=== PATIENT | female | born 1940 | race Caucasian/White ===

== ENCOUNTER 2024-02-26 06:37 | Inpatient (IN) ==
[2024-02-26] MEDS: NITROGLYCERIN SL 0.4 MG/TAB TAB SL PRN (07:14)
[2024-02-26] MEDS: ASPIRIN CHEW 324 MG PO STA (07:14)
[2024-02-26 07:28] LABS: Basophils # (auto) 0.06 K/uL (0.00-0.20); Basophils % (auto) 0.5 %; Eosinophils # (auto) 0.22 K/uL (0.00-0.50); Hematocrit (blood only) 37.3 % (37.0-47.0); Hemoglobin 12.4 g/dl (12.0-16.0); Immature Granulocytes # (auto) 0.04 K/uL (0.01-0.20); Immature Granulocytes % (auto) 0.4 %; Lymphocytes # (auto) 3.53 K/uL (1.20-3.40); Lymphocytes % (auto) 32.1 %; Mean Corpuscular Hemoglobin 27.8 pg (25.0-34.0); Mean Corpuscular Hgb Conc 33.2 g/dL (32.0-36.0); Mean Corpuscular Volume 83.6 fL (80.0-100.0); Mean Platelet Volume 11.4 fL (9.4-12.4); Monocytes # (auto) 0.94 K/uL (0.11-0.59); Monocytes % (auto) 8.6 %; Neutrophils % (auto) 56.4 %; Platelet Count 293 K/uL (130-400); RDW Coefficient of Variation 14.2 % (11.5-14.5); RDW Standard Deviation 43.2 fL (36.4-46.3); Red Blood Count 4.46 M/uL (4.20-5.40); White Blood Count 10.99 K/ul (4.8-10.8)
[2024-02-26 07:35] LABS: Albumin Globulin Ratio 1.2 (0.9-2); Albumin Level 4.1 gm/dl (3.4-5.0); BUN Creatinine Ratio 15.8 (10-20); Bilirubin,Total 0.4 mg/dl (0.2-1.0); Creatinine Clr Calc Pharmacy 43.7 ml/min; Est GFR (African American) 84.1 ml/min; Est GFR (Non-African American) 72.5 ml/min; Globulin 3.5 gm/dl (2.5-4.0); Potassium 3.9 mmol/L (3.5-5.1); Total Protein 7.6 gm/dl (6.0-8.3)
--- NOTE | 2024-02-26 07:39 | XRay Report ---
XR chest 1V portable CLINICAL HISTORY: Chest pain, nonspecific TECHNIQUE: Single frontal radiograph of the chest was obtained. Comparison: None available at the time of this dictation. FINDINGS: No lines and tubes are seen. Calcified aortic knob is seen. The lungs are clear. No evidence of pleur al effusion or pneumothorax. IMPRESSION: No acute chest disease. ACT 112: Negative or not required by law. Electronically signed by: Suraj Schmitz M.D. 02/26/2024 7:38 AM
--- NOTE | 2024-02-26 07:46 | Emergency Department Note ---
Impression & Plan Retrosternal chest pain ED Provider Note NAME: ARIELLE MCCULLOUGH AGE: 83 SEX: Female INFORMANT: Patient ED PROVIDER(S): Antonio Pollock MD CHIEF COMPLAINT: Chest pain PLAN: Disposition: Admitted Outpatient prescription management: none Referral: None MEDICAL DECISION MAKING: Patient presented because of substernal chest pain. She was uncomfortable. ECG was performed and did not show any acute ischemic change. Pre-existing left bundle branch morphology. I did obtain an ECG from the [facility] system from 2019. Our last ECG here was in 2010. Comparing the 3 ECGs did not reveal any significant changes. Patient was given aspirin and 1 nitroglycerin. She did note some relief with the nitroglycerin and a second dose was given. Blood pressure did improve with this. Pain resolved. On reassessment patient was doing well. Further management the hospital was deemed appropriate. Consultation was made with the [facility] service. Patient was evaluated in the ER and admitted for further management. Care/management discussed with: manager report Level of care consideration(s): After review of the information above and other included data, I feel the patient requires escalation of care to admission Triage Nursing notes: reviewed and agree them. Vital Signs: reviewed and remarkable for hypertension Additional History obtained from: none Chronic Medical/Social Conditions affecting care: Hypertension, high cholesterol Prior/ Outside/ External records reviewed: ECG from [facility] was reviewed from December 2019. <Noted. Also echo cardiogram from 2022 reviewed. Mild LV wall thickness increase noted. EF of 65to 69%. No aortic stenosis. No pulmonary hypertension. Differential Diagnosis: Cardiac ischemia, aortic dissection, pulmonary embolism, pneumothorax, pneumonia, pericarditis, myocarditis, esophageal rupture, GERD, cholecystitis, pancreatitis, musculoskeletal, as well as other pathologies. Diagnostics, independently interpreted by me: ECG: Twelve-lead ECG reveals normal sinus rhythm at 92 bpm. Left bundle branch block. ST and T wave abnormality laterally. Prolonged QT. When compared to 23 January 2011 and 09 December 2019 there is no significant change. Cardiac Monitoring: Cardiac monitoring ordered by me: The patient was placed on continuous cardiac monitoring and observed. It revealed a normal sinus rhythm at 90 beats per minute without ectopy or evidence of dysrhythmia. Medical decision rules: Patient is moderate risk by HEART SCORE:. Imaging studies: Chest x-ray. Findings: A chest x-ray was performed and revealed no pneumothorax, effusion, infiltrate, pulmonary edema, free air under the diaphragm, or wide mediastinum. HPI: 83 year old Female arrives for evaluation of chest pain. This started this morning and is retrosternal. The patient also notes the following associated symptoms, 2 episodes of diarrhea. The patient has taken no medication for relieving factors. Current pain is rated as 7/10. No prior history of the same. Pt denies LOC, headache, fevers, chills, diaphoresis, visual changes, neck pain, breathing difficulties, nausea, vomiting, abdominal pain, back pain, melena, hematochezia, urinary symptoms, numbness, weakness, lymphadenopathy, rash, or other complaints. PAST MEDICAL HISTORY: See Below, hypertension PAST SURGICAL HISTORY: See Below, SOCIAL HISTORY: See Below, HOME MEDICATIONS: See Below ALLERGIES: See Below VITALS: See Below PHYSICAL EXAMINATION: GENERAL: Awake, alert, uncomfortable-appearing, in no distress HENT: Normocephalic, atraumatic. Oropharynx unremarkable. EYES: Normal conjunctiva. Sclera non-icteric. NECK: Inspection normal. Non-tender. Supple. No nuchal rigidity. FROM. No masses. RESPIRATORY: Clear to auscultation. No wheezes. No rales. Normal respiratory effort. CARDIAC: Normal rate. Normal rhythm. Systolic ejection murmur noted. No rubs. Extremities warm and well perfused. Pulses equal. No JVD. GI: Soft, non-distended. No tenderness to palpation. No rebound or guarding. No masses. RECTAL: Deferred. MUSCULOSKELETAL: Atraumatic. Chest examination reveals no tenderness. The back is symmetrical on inspection without obvious abnormality. There is no CVA tenderness to palpation. No joint edema. LOWER EXTREMITIES: Calves are equal size bilaterally and non-tender. No edema. No discoloration. NEURO: Normal sensorium. No sensory or motor deficits noted. SKIN: No rash or jaundice noted. PROCEDURES: none CRITICAL CARE: none OBSERVATION NOTE: none Past Med/Surg History Problem List (Updated 02/26/24 @ 11:13 by CRISTOFER Mills) Suspected UTI Diarrhea Hypertension Dyslipidemia Retrosternal chest pain (Acute) Surgical History No pertinent past surgical history Family History Other Dyslipidemia Social History Smoking Status: Never smoker Preferred Language: Welsh Feels Safe at Home: Yes Allergies Allergies Allergy/AdvReac Type Severity Reaction Status Date / Time atorvastatin AdvReac Intermediate Cramping Unverified 02/26/24 09:35 of the Muscles prednisone AdvReac Intermediate "loss of Unverified 02/26/24 09:35 balance. didnt work" Home Meds Home Medications Medication Instructions Recorded Confirmed lisinopril 20 0.5 tab PO DAILY 02/26/24 02/26/24 mg-hydrochlorothiazide 12.5 mg tablet omeprazole 20 mg capsule,delayed 20 mg PO DAILY 02/26/24 02/26/24 release Results & Data (ED) Vital Signs Vital Signs - 24 hr 02/26/24 06:38 02/26/24 06:42 02/26/24 07:28 Temperature 36.8 C Temperature Source Temporal Artery Scan Pulse Rate 98 H 88 Pulse Rate from SpO2 Sensor 83 Respiratory Rate 18 21 Blood Pressure 190/83 H Blood Pressure Mean 118 Blood Pressure Position Sitting Pulse Oximetry 94 92 Oxygen Delivery Method Room Air Room Air Sepsis Recent Fever Within 48 Hours No Sepsis New/Unexplained Change in Mental Status N/A Sepsis Action Taken by Nursing No Action Required 02/26/24 07:29 02/26/24 07:30 02/26/24 07:45 Temperature Temperature Source Pulse Rate 88 90 88 Pulse Rate from SpO2 Sensor 84 88 85 Respiratory Rate 20 22 19 Blood Pressure 151/83 H 153/81 H 136/84 Blood Pressure Mean 105 105 101 Blood Pressure Position Pulse Oximetry 94 93 94 Oxygen Delivery Method Sepsis Recent Fever Within 48 Hours Sepsis New/Unexplained Change in Mental Status Sepsis Action Taken by Nursing 02/26/24 08:00 02/26/24 08:14 02/26/24 08:15 Temperature Temperature Source Pulse Rate 77 78 Pulse Rate from SpO2 Sensor 76 77 Respiratory Rate 17 Blood Pressure 137/75 Blood Pressure Mean 95 Blood Pressure Position Pulse Oximetry 92 93 Oxygen Delivery Method Sepsis Recent Fever Within 48 Hours Sepsis New/Unexplained Change in Mental Status Sepsis Action Taken by Nursing 02/26/24 08:30 02/26/24 08:44 02/26/24 09:00 Temperature Temperature Source Pulse Rate 78 75 77 Pulse Rate from SpO2 Sensor 78 75 76 Respiratory Rate 22 18 20 Blood Pressure 139/71 146/66 H 147/77 H Blood Pressure Mean 93 92 100 Blood Pressure Position Pulse Oximetry 93 93 93 Oxygen Delivery Method Sepsis Recent Fever Within 48 Hours Sepsis New/Unexplained Change in Mental Status Sepsis Action Taken by Nursing 02/26/24 09:14 02/26/24 09:30 02/26/24 09:45 Temperature Temperature Source Pulse Rate 76 81 80 Pulse Rate from SpO2 Sensor 76 81 78 Respiratory Rate 19 24 22 Blood Pressure 150/78 H 158/88 H 177/89 H Blood Pressure Mean 102 111 118 Blood Pressure Position Pulse Oximetry 92 95 95 Oxygen Delivery Method Sepsis Recent Fever Within 48 Hours Sepsis New/Unexplained Change in Mental Status Sepsis Action Taken by Nursing Laboratory Data 02/26/24 06:55 02/26/24 06:55 Lab Results 02/26/24 02/26/24 Range/Units 06:55 08:21 WBC 10.99 H (4.8-10.8) K/ul RBC 4.46 (4.20-5.40) M/uL Hgb 12.4 (12.0-16.0) g/dl Hct 37.3 (37.0-47.0) % MCV 83.6 (80.0-100.0) fL MCH 27.8 (25.0-34.0) pg MCHC 33.2 (32.0-36.0) g/dL RDW Std Deviation 43.2 (36.4-46.3) fL RDW Coeff of James 14.2 (11.5-14.5) % Plt Count 293 (130-400) K/uL MPV 11.4 (9.4-12.4) fL Immature Gran % (Auto) 0.4 % Neut % (Auto) 56.4 % Lymph % (Auto) 32.1 % Ashe % (Auto) 8.6 % Eos % (Auto) 2.0 % Baso % (Auto) 0.5 % Neut # (Auto) 6.20 (1.40-6.50) K/uL Lymph # (Auto) 3.53 H (1.20-3.40) K/uL Ashe # (Auto) 0.94 H (0.11-0.59) K/uL Eos # (Auto) 0.22 (0.00-0.50) K/uL Baso # (Auto) 0.06 (0.00-0.20) K/uL Immature Gran # (Auto) 0.04 (0.01-0.20) K/uL Sodium 142 (136-145) mmol/L Potassium 3.9 (3.5-5.1) mmol/L Chloride 101 (98-107) mmol/L Carbon Dioxide 34 H (21-32) mmol/L Anion Gap 7 (3-11) BUN 12 (6-23) mg/dl Creatinine 0.76 (0.6-1.2) mg/dl Est Cr Clr Drug Dosing 43.7 ml/min Est GFR ( Amer) 84.1 ml/min Est GFR (Non-Af Amer) 72.5 ml/min BUN/Creatinine Ratio 15.8 (10-20) Glucose 104 H (70-99(Fasting)) mg/dl Calcium 10.0 (8.6-10.3) mg/dl Total Bilirubin 0.4 (0.2-1.0) mg/dl AST 16 (13-39) U/L ALT 18 (7-52) U/L Alkaline Phosphatase 92 (34-104) U/L Troponin I High Sens 7.0 (0-14) pg/ml Total Protein 7.6 (6.0-8.3) gm/dl Albumin 4.1 (3.4-5.0) gm/dl Globulin 3.5 (2.5-4.0) gm/dl Albumin/Globulin Ratio 1.2 (0.9-2) Lipase 33 (11-82) U/L TSH 4.673 H (0.300-4.500) uIu/ml Urine Color Yellow Urine Appearance Turbid A (Clear) Urine pH >= 9.0 H (4.5-7.5) Ur Specific [place] 1.014 (1.000-1.030) Urine Protein Trace H (Negative) Urine Glucose (UA) Negative (Negative) Urine Ketones Negative (Negative) Urine Blood Negative (Negative) Urine Nitrite Negative (Negative) Urine Bilirubin Negative (Negative) Urine Urobilinogen Negative (Negative) Ur Leukocyte Esterase Negative (Negative) Urine WBC (Auto) 0-5 (0-5) /hpf Urine RBC (Auto) 0-2 (0-2) /hpf U Hyaline Cast (Auto) 0-2 (0-2) /lpf U Epithel Cells (Auto) 0-2 (0-2) /hpf Urine Bacteria (Auto) 4+ H (None Seen) Administered Medications Ceftriaxone Sodium (Rocephin) 2,000 mg in 50 mls @ 100 mls/hr IV Q24H [facility] Stop: 02/28/24 10:44 Last Infusion: 02/26/24 11:47 Dose: Infused Documented By: Admin: 02/26/24 11:15 Dose: 100 mls/hr Documented By: JIMI Lisinopril (Lisinopril 20 Mg Tab) 20 mg PO QAM OSITO Stop: 03/27/24 10:29 Last Admin: 02/26/24 11:14 Dose: 20 mg Documented By: JIMI Nitroglycerin (Nitroglycerin Sl 0.4 Mg/Tab Tab) 0.4 mg SL Q5M PRN PRN Reason: Chest Pain Stop: 03/27/24 07:02 Last Admin: 02/26/24 07:14 Dose: 0.4 mg Documented By: LINDA Nitroglycerin (Nitroglycerin 2% Ointment 30gm Tube) 0.5 inch EXT Q6 OSITO Stop: 03/27/24 11:59 Last Admin: 02/26/24 12:16 Dose: Not Given Documented By: JIMI Discontinued Medications Aspirin (Aspirin Chew 324 Mg) 324 mg PO NOW STA Stop: 02/26/24 07:04 Last Admin: 02/26/24 07:14 Dose: 324 mg Documented By: LINDA Nitroglycerin (Nitroglycerin 2% Ointment 30gm Tube) 0.5 inch EXT NOW STA Stop: 02/26/24 09:30 Last Admin: 02/26/24 09:48 Dose: 0.5 inch Documented By: ARS Imaging Data Radiologist's Impression: Chest X-Ray 02/26/24 06:59 XR chest 1V portable CLINICAL HISTORY: Chest pain, nonspecific TECHNIQUE: Single frontal radiograph of the chest was obtained. Comparison: None available at the time of this dictation. FINDINGS: No lines and tubes are seen. Calcified aortic knob is seen. The lungs are clear. No evidence of pleural effusion or pneumothorax. IMPRESSION: No acute chest disease. ACT 112: Negative or not required by law. Electronically signed by: Suraj Schmitz M.D. 02/26/2024 7:38 AM Discharge Plan Visit Data Chief Complaint: Chest Pain Stated Complaint: CHEST PAIN ED Provider: Antonio Pollock Discharge Problem: Retrosternal chest pain Patient Disposition: Admitted As Inpatient Discharge Instructions Interventions: ED Discharge Assessment Last Done: 02/26/24 11:51
[2024-02-26 08:53] LABS: Appearance Urine Turbid (Clear); Bacteria Urine Automated 4+ (None Seen); Bilirubin Urine Negative (Negative); Blood Urine Negative (Negative); Cast Urine Automated 0-2 /lpf (0-2); Color Urine Yellow; Epithelial Cell Urine Auto 0-2 /hpf (0-2); Glucose Urine UA Negative (Negative); Ketones Urine Negative (Negative); Leukocyte Esterase Urine Negative (Negative); Nitrite Urine Negative (Negative); Protein Urine Trace (Negative); RBC Urine Automated 0-2 /hpf (0-2); Specific Gravity Urine 1.014 (1.000-1.030); Urobilinogen Urine Negative (Negative); WBC Urine Automated 0-5 /hpf (0-5); pH Urine >= 9.0 (4.5-7.5)
[2024-02-26] MEDS: NITROGLYCERIN 2% OINTMENT 30GM TUBE EXT STA (09:48)
[2024-02-26] MEDS ORDERED: ONDANSETRON INJ 2 MG/ML 2 ML VIAL IV PRN (09:54)
[2024-02-26] MEDS ORDERED: ACETAMINOPHEN 325 MG TAB PO PRN (09:54)
[2024-02-26] MEDS ORDERED: ALUMINUM/MAGNESIUM SUSP 30 ML UDC PO PRN (09:54)
[2024-02-26] MEDS ORDERED: MAGNESIUM HYDROXIDE SUSP 30 ML UDC PO PRN (09:54)
--- NOTE | 2024-02-26 10:03 | History & Physical Report ---
Date of Service February 26, 2024 Assessment & Plan (1) Retrosternal chest pain: (2) Hypertension: (3) Dyslipidemia: (4) GERD (gastroesophageal reflux disease): (5) Diarrhea: (6) Suspected UTI: Plan Ms. Yanes is an 83 year old that presents to the ED with complaints of mid sterna l chest pain that started overnight at 0200 with no SOB or radiation. She denies SOB with this. ECG 2019 with LBBB which remains today with some lateral ischemic Patient did not take her antihypertensives this morning. Denies CAD history. She did have three episodes of diarrhea today. She did not take her BP medication today and admits to missing some days. Most recent 05/06/2023; EF 60 to 69%, mild aortic valve sclerosis, increased LV wall thickness borderline concentric, G1DDx. Slight leukocytosis 10.99, LFTs and troponin negative. Otherwise drawn labs unremarkable. Most recent lipid panel 10/30 TG 2050, HDL 39, LDL 150. TSH October 2023 2.35.On exam, patient does not appear toxic. Reportedly with an auscultated murmur, euvolemic. Patient will be admitted for further evaluation and management of her chest pain; will repeat ECHO, check fasting lipid panel, obtain TSH, daily ECG x2, continue Nitro paste, Labetalol IV PRN, will hold HCTZ given diarrhea, ordered stool studies, Rocephin IV for empiric treatment and Cardiology consultation. Retrosternal chest pain: HTN urgency: Acute Started overnight at 0200 without radiation BP on arrival to ED 190/83 ECG without ischemia; LBBB Troponin negative (7.0) ASA 324 mg given in ED; continue baby ASA tomorrow CXR negative for acute cardiopulmonary disease Most recent 05/06/2023; EF 60 to 69%, mild aortic valve sclerosis, increased LV wall thickness borderline concentric, G1DDx. Repeat ECHO today Nitro SL x2; Nitro paste applied; continue for now takes Lisinopril/HCTZ; Hold for now and continue Lisinopril 20 mg daily Labetalol 10 mg IV Q6 PRN SBP > 180 DBP > 100 Continue Nitro paste for now Cardiology consult placed Diarrhea: Abnormal UA: Suspected UTI Acute 3 episodes today Stool culture ordered Rocephin one dose IV today for empiric treatment HLD: Chronic Last lipid panel 10/2023: TG 250, HDL 39, LDL 152; repeat fasting lipid panel in AM no longer takes low dose atorvastatin; has muscle cramping GERD: Chronic Takes Omeprazole;continue Disposition: PCP: Dr. Suarez Code Status: Conditional code VTE Prophylaxis: Lovenox SQ I spent a total of 85 minutes coordinating, documenting, and providing care for this patient excluding time spent in the performance of separately billed services. All of the aforementioned completed while collaborating with the assigned attending physician for a full treatment plan. Please see their addendum for further details. History of Present Illness Chief Complaint: chest pain Primary Care Provider: Leah Suarez DO Ms. Yanes is an 83 year old that presents to the ED with complaints of mid sternal chest pain that started overnight at 0200 with no SOB or radiation. She denies SOB with this. ECG 2020 with LBBB which remains today with some lateral ischemia. Patient did not take her antihypertensives this morning. She did have three episodes of diarrhea today. She did not take her BP medication today and admits to missing some days. PMH includes: HTN, HLD, and GERD. She does not take any statin due to muscle cramping. Denies tobacco, alcohol, and recreational drug use. Most recent 05/06/2023; EF 60 to 69%, mild aortic valve sclerosis, increased LV wall thickness borderline concentric, G1DDx. Slight leukocytosis 10.99, LFTs and troponin negative. Otherwise drawn labs unremarkable. Most recent lipid panel 10/30 TG 0, HDL 39, LDL 150. TSH October 2023 2.35. Pt denies ALMAZAN, dizziness, lightheadedness, abdominal pain or tenderness, dysuria, SOB, recent falls or trauma. On exam, patient does not appear toxic. Reportedly with an auscultated murmur, euvolemic. Patient will be admitted for further evaluation and management of her chest pain; will repeat ECHO, check fasting lipid panel, obtain TSH, daily ECG x2, continue Nitro paste, Labetalol IV PRN, will hold HCTZ given diarrhea, ordered stool studies, Rocephin IV for empiric treatment and Cardiology consultation. Allergies Allergy/AdvReac Type Severity Reaction Status Date / Time atorvastatin AdvReac Intermediate Cramping Unverified 02/26/24 09:35 of the Muscles prednisone AdvReac Intermediate "loss of Unverified 02/26/24 09:35 balance. didnt work" Home Medications Medication Instructions Recorded Confirmed Type lisinopril 20 0.5 tab PO DAILY 02/26/24 02/26/24 History mg-hydrochlorothiazide 12.5 mg tablet omeprazole 20 mg capsule,delayed 20 mg PO DAILY 02/26/24 02/26/24 History release Past Med/Surg History Problem List (Updated 02/26/24 @ 11:13 by CRISTOFER Mills) Suspected UTI Diarrhea Hypertension Dyslipidemia Retrosternal chest pain (Acute) Surgical History No pertinent past surgical history Family History Other Dyslipidemia Social History Smoking Status: Never smoker Preferred Language: Israeli Feels Safe at Home: Yes Review of Systems Review of Systems: Neuro: (-) Falls, trauma, slurred speech HEENT: (-) ALMAZAN, dizziness, dysphagia, visual or auditory changes CV: (+) CP, palpitations, (-) swelling Resp: (-) SOB GI: (-) appetite changes, N/V/D, bowel changes : (-) urinary changes Skin: (-) rashes Psych: (-) anxiety, depression Physical Exam Physical Exam: See Dr. Mccauley's addendum for physical examination findings Results & Data Results & Data Vital Signs (Past 12 Hours) Vital Signs Temp Pulse Resp BP Pulse Ox O2 Del Method 02/26/24 08:14 77 02/26/24 06:42 36.8 C 98 H 18 190/83 H 94 Room Air 02/26/24 06:38 Room Air Laboratory Results Short CBC 02/26/24 Range/Units 06:55 WBC 10.99 H (4.8-10.8) K/ul Hgb 12.4 (12.0-16.0) g/dl Hct 37.3 (37.0-47.0) % Plt Count 293 (130-400) K/uL BMP 02/26/24 06:55 Sodium 142 Potassium 3.9 Chloride 101 Carbon Dioxide 34 H BUN 12 Creatinine 0.76 Glucose 104 H Calcium 10.0 Liver Function 02/26/24 Range/Units 06:55 Total Bilirubin 0.4 (0.2-1.0) mg/dl AST 16 (13-39) U/L ALT 18 (7-52) U/L Alkaline Phosphatase 92 (34-104) U/L Albumin 4.1 (3.4-5.0) gm/dl Urine 02/26/24 Range/Units 08:21 Urine Color Yellow Urine Appearance Turbid A (Clear) Urine pH >= 9.0 H (4.5-7.5) Ur Specific Jensen 1.014 (1.000-1.030) Urine Protein Trace H (Negative) Urine Glucose (UA) Negative (Negative) Diagnostic Findings Chest X-Ray 02/26/24 06:59 XR chest 1V portable CLINICAL HISTORY: Chest pain, nonspecific TECHNIQUE: Single frontal radiograph of the chest was obtained. Comparison: None available at the time of this dictation. FINDINGS: No lines and tubes are seen. Calcified aortic knob is seen. The lungs are clear. No evidence of pleural effusion or pneumothorax. IMPRESSION: No acute chest disease. ACT 112: Negative or not required by law. Electronically signed by: Suraj Schmitz M.D. 02/26/2024 7:38 AM Code Status & VTE Plan Code Status Full Code in the event of cardiac or respiratyory arrest VTE Prophylaxis Plan VTE Prophylaxis will be ordered: Yes Supervising Physician Co-Signing Physician Notes Patient is an 83-year-old female with history of hypertension, hyperlipidemia, GERD and other medical problems presents with history of sudden onset of retrosternal chest pain, nonradiating, associated with nausea and diarrhea. Patient denies any dizziness, palpitations, shortness of breath, chest trauma. Also denies any recent infections. Admits to intermittently missing her antihypertensives. She did not take her medications this morning. She was noted to be in hypertensive urgency while in ED and was started on nitroglycerin. Currently chest pain is mild. Please review HPI for complete details of presentation. Blood work suggestive of leukocytosis 10.99 K, TSH 4.6, showed trace protein and 4 + bacteria. Chest x-ray showed no acute process. EKG showed normal sinus rhythm, incomplete left bundle branch block, nonspecific ST-T wave abnormalities. Initial troponin negative. Physical Exam: Vitals signs as noted above General Appearance:Moderately built and nourished, no apparent distress Head: normocephalic, Atraumatic Eyes: normal inspection, EOMI Neck: supple, Trachea midline Respiratory/Chest: Normal breath sounds, CTA, No accessory muscle use Cardiovascular: S1, S2, + murmur Abdomen/GI:Soft, Non tender, Bowel sounds present Extremities/Musculoskeletal:normal inspection, no edema Neurologic/Psych:AAOX3, grossly no focal neurological deficits Skin: normal color, warm Chest pain R/O ACS Hypertensive urgency Incomplete left bundle branch block Prolonged QTc Intermittent noncompliance with antihypertensives secondary to forgetfulness Initial troponin negative. Chest x-ray no acute process Will obtain resting echo, trend troponin Will continue lisinopril and hold HCTZ given diarrhea IV labetalol as needed Will start on nitroglycerin, aspirin Continue Lipitor Cardiology consulted Adjust antihypertensives as needed Diarrhea Obtain stool studies Abnormal UA Empirically on Rocephin I personally interviewed and examined at bedside. Patient's care is coordinated with Dominique [place]. I have reviewed the advanced practitioner's documentation, and I agree with plan of care. Please refer to the documentation above for details of patient's presentation and for discussion of other issues. I spent a total [id number] coordinating, documenting, and providing care for this patient excluding time spent in the performance of separately billed s ervices.
[2024-02-26] MEDS ORDERED: LABETALOL HCL IV 5 MG/ML 20ML IV PRN ×2 (10:22→10:37)
[2024-02-26 10:33] LABS: Thyroid Stimulating Hormone 4.673 uIu/ml (0.300-4.500)
[2024-02-26] MEDS: lisinopril 20 MG TAB PO SCH (11:14)
[2024-02-26] MEDS: cefTRIAXone SODIUM 2,000 MG/50 ML BAG IV SCH (11:15)
[2024-02-26] MEDS: NITROGLYCERIN 2% OINTMENT 30GM TUBE EXT SCH (12:16)
--- NOTE | 2024-02-26 14:22 | Cardiology Consultation ---
Date of Consultation February 26, 2024 Assessment & Plan (1) Retrosternal chest pain: (2) Hypertension: (3) Dyslipidemia: (4) Suspected UTI: Plan Assessment: 83 year-old male that presents for sudden onset chest pain with no other associated symptoms. Came on at rest and no chage with exertion. Notably hypertensive upon arrival with notation of multiple missed doses of medications. Plan: 1. Chest pain: -Etiology unclear. No prior history of CAD and negative nuclear in 2019. Patient's symptoms are somewhat atypical and suspect her significantly elevated BP plays a role; however, patient has risk factors for coronary disease -Obtain echo to assess overall structure and function as well as for any wall motion abnormality. -NPO after midnight for tentative nuclear lexiscan stress test in the setting of a incomplete left BBB which would make a treadmill stress non-diagnostic. patient also has gait issues which would limit her ability. will reassess patient's symptoms in the AM 2. HTN: -Well above target on arrival. -currently controlled. -obtain echo as noted above. -Continue Lisinopril 20mg Daily 3. HLD: -Reports intolerance to statin therapy in the past. -obtain fasting lipid panel and further recommendations pending results. 4. suspected UTI -Elevated WBC -UA abnormal/Culture pending. -Continued management per primary team. Patient now receiving IV rocephin. Case has been discussed with Dr. Multani. Further recommendations regarding plan of care as per his assessment. I spent a total of 40 minutes on the date of service in preparation, delivery, documentation of the care provided to the patient excluding any time spent in the performance of separately billed services. CRISTOFER Singleton [facility] Cardiology [facility] Supervising Physician Co-Signing Physician Notes I have personally performed a history and physical examination on the patient. I have reviewed the advance practitioner's documentation, and I agree with, and take responsibility for the plan of care. 83 year old female with atypical chest discomfort and uncontrolled blood pressure on admission. Cardiac enzymes negative. ECG nondiagnostic due to chronic LBBB. Echocardiogram demonstrates preserved LV function. Recommend lexiscan nuclear stress in AM for further evaluation. I spent a total of 30 minutes on the date of service in preparation, delivery, and documentation of the care provided to this patient, excluding any time spent in the performance of separately billed services. History of Present Illness Reason for Consultation: Chest pain/HTN [facility] Attending Physician: Chuy Mccauley MD History of Present Illness HPI: patient is an 83 year old female with PMHx of HTN, HLD, and GERD that presents to the ED with complaints of sudden onset mid-sternal chest pain that started at 0200. Described as sharp, non-radiating and no other associated symptoms. She was awake at the time of the incident and reports that after a few hours decided it was time to be seen. She reports that she is having a lot of right shoulder issues and wonders if that has anything to do with it, but the pain does not radiate from the shoulder is not exacerbated with movement. Patient was found to be hypertensive with systolic BP in the 190's. she admits to missing her meds on a regular basis. EKG obtained at time of admission demonstrates NSR with incomplete left BBB. ST &T wave abnormality in lateral leads. EKG's dating back to 2012 continue to demonstrate an incomplete left BBB. She also had prior cited ST/T wave abnormality in lateral leads. WBC elevated. Troponin negative x1 Chest xray negative Of note, patient was last seen by [facility] Cardiology 07/23/2014 after a vasovagal event during colonoscopy. Upon seeing patient today, she is resting comfortably in bed with no acute complaints. she states that her chest pain has resolved, and her BP last stress test was a nuclear lexiscan completed 01/06/2020 as follows: Interpretation Summary The stress EKG response is nondiagnostic for ischemia due to the underlying left bundle branch block. No arrhythmias were observed on the stress EKG. Lexiscan nuclear cardiac stress test negative for ischemia. Gated SPECT imaging reveals normal myocardial thickening and wall motion. The left ventricular ejection fraction was calculated to be >70% last echocardiogram 05/06/2023 Interpretation Summary The examination is adequate to evaluate the referral indication. The left ventricular cavity size is normal. The LV wall thickness is mildly increased (concentric). The left ventricular wall motion is normal. The qualitative LV ejection fraction is 65-69% (normal). The left ventricular diastolic function is mildly abnormal (grade I). Mild aortic valve sclerosis is present. Aortic stenosis is absent. There is no evidence of pulmonary hypertension. Allergies Allergy/AdvReac Type Severity Reaction Status Date / Time atorvastatin AdvReac Intermediate Cramping Unverified 02/26/24 09:35 of the Muscles prednisone AdvReac Intermediate "loss of Unverified 02/26/24 09:35 balance. didnt work" Home Medications Medication Instructions Recorded Confirmed Type lisinopril 20 0.5 tab PO DAILY 02/26/24 02/26/24 History mg-hydrochlorothiazide 12.5 mg tablet omeprazole 20 mg capsule,delayed 20 mg PO DAILY 02/26/24 02/26/24 History release Patient History Surgical History No pertinent past surgical history Family History Other Dyslipidemia Social History Smoking Status: Never smoker Hx Alcohol Use: No Hx Substance Use: No Preferred Language: Zimbabwean Communication Ability: Effective Weatherization Administrator Required: No Beliefs That Will Affect Care: None Current Living Situation: Spouse Other Information That Helps Us Care for You: No Feels Safe at Home: Yes Safety Concerns: Feels Safe At This Time Assistive Devices: None Review of Systems Review of Systems: All systems reviewed & are unremarkable except as noted in HPI & below Physical Exam Constitutional: well developed and well nourished; no acute distress and not ill appearing Neck: normal visual inspection and trachea midline Respiratory: normal respiratory effort; no cough Auscultation: lungs clear to auscultation bilaterally; no crackles, no rales, no rhonchi and no wheezes Cardiovascular: Rate/Rhythm: regular rate and regular rhythm Heart Sounds: normal S1, normal S2 and + murmur (+1/6 systolic ) Vessels: no JVD Skin: no rashes, warm and dry Psychiatric: A+Ox3, euthymic affect Results & Data Vital Signs (Past 12 Hours) Vital Signs Temp Pulse Pulse Resp BP BP Pulse Ox 02/26/24 13:44 15 02/26/24 12:45 78 19 95 02/26/24 12:45 131/67 02/26/24 12:30 76 16 91 02/26/24 12:30 153/75 H 02/26/24 12:27 139/90 02/26/24 12:27 163/79 H 02/26/24 12:27 153/76 H 02/26/24 12:27 147/75 H 02/26/24 12:26 79 20 92 02/26/24 12:00 82 19 93 02/26/24 12:00 85 18 153/76 H 93 02/26/24 11:02 86 20 93 02/26/24 10:30 79 95 02/26/24 10:30 145/100 H 02/26/24 10:16 171/95 H 02/26/24 10:16 82 19 02/26/24 10:00 78 16 95 02/26/24 09:59 81 16 152/88 H 96 02/26/24 09:45 80 22 177/89 H 95 02/26/24 09:30 81 24 158/88 H 95 02/26/24 09:14 76 19 150/78 H 92 02/26/24 09:00 77 20 147/77 H 93 02/26/24 08:44 75 18 146/66 H 93 02/26/24 08:30 78 22 139/71 93 02/26/24 08:15 78 17 137/75 93 02/26/24 08:14 77 02/26/24 08:00 92 02/26/24 07:45 88 19 136/84 94 02/26/24 07:30 90 22 153/81 H 93 02/26/24 07:29 88 20 151/83 H 94 02/26/24 07:28 88 21 92 02/26/24 06:42 36.8 C 98 H 18 190/83 H 94 02/26/24 06:38 O2 Del Method 02/26/24 13:44 02/26/24 12:45 02/26/24 12:45 02/26/24 12:30 02/26/24 12:30 02/26/24 12:27 02/26/24 12:27 02/26/24 12:27 02/26/24 12:27 02/26/24 12:26 02/26/24 12:00 02/26/24 12:00 Room Air 02/26/24 11:02 02/26/24 10:30 02/26/24 10:30 02/26/24 10:16 02/26/24 10:16 02/26/24 10:00 02/26/24 09:59 02/26/24 09:45 02/26/24 09:30 02/26/24 09:14 02/26/24 09:00 02/26/24 08:44 02/26/24 08:30 02/26/24 08:15 02/26/24 08:14 02/26/24 08:00 02/26/24 07:45 02/26/24 07:30 02/26/24 07:29 02/26/24 07:28 02/26/24 06:42 Room Air 02/26/24 06:38 Room Air Laboratory Results Cardiac Enzymes 02/26/24 02/26/24 Range/Units 06:55 14:50 AST 16 (13-39) U/L Troponin I High Sens 7.0 5.2 (0-14) pg/ml CBC 02/26/24 Range/Units 06:55 WBC 10.99 H (4.8-10.8) K/ul RBC 4.46 (4.20-5.40) M/uL Hgb 12.4 (12.0-16.0) g/dl Hct 37.3 (37.0-47.0) % Plt Count 293 (130-400) K/uL Neut # (Auto) 6.20 (1.40-6.50) K/uL Lymph # (Auto) 3.53 H (1.20-3.40) K/uL Baker # (Auto) 0.94 H (0.11-0.59) K/uL Eos # (Auto) 0.22 (0.00-0.50) K/uL Baso # (Auto) 0.06 (0.00-0.20) K/uL Comprehensive Metabolic Panel 02/26/24 Range/Units 06:55 Sodium 142 (136-145) mmol/L Potassium 3.9 (3.5-5.1) mmol/L Chloride 101 (98-107) mmol/L Carbon Dioxide 34 H (21-32) mmol/L BUN 12 (6-23) mg/dl Creatinine 0.76 (0.6-1.2) mg/dl Glucose 104 H (70-99(Fasting)) mg/dl Calcium 10.0 (8.6-10.3) mg/dl AST 16 (13-39) U/L ALT 18 (7-52) U/L Alkaline Phosphatase 92 (34-104) U/L Total Protein 7.6 (6.0-8.3) gm/dl Albumin 4.1 (3.4-5.0) gm/dl Intake and Output 02/26/24 02/26/24 02/26/24 06:59 14:59 22:59 Intake Total 50 / 50 Balance 50 / 50 Intake: IV 50 / 50 cefTRIAXone SODIUM 2,000 mg In 50 / 50 50 ml @ 100 mls/hr IV Q24H [facility] Rx#:[id number] Other: Weight 58.5 kg Weight Measurement Method Chair Scale
--- NOTE | 2024-02-26 16:39 | Electrocardiogram Report ---
Test Reason : Blood Pressure : / mmHG Vent. Rate : 092 BPM Atrial Rate : 092 BPM P-R Int : 152 ms QRS Dur : 110 ms QT Int : 384 ms P-R-T Axes : 055 -10 133 degrees QTc Int : 474 ms Normal sinus rhythm Incomplete left bundle block Prolonged QT Abnormal ECG When compared with ECG of 23-JAN-2011 10:01, No significant change was found Confirmed by Arsh Carey ([id number]) on 02/26/2024 4:39:38 PM Referred By: REFERRED SELF Confirmed By:Arsh Carey
--- OUTSIDE RECORDS SUMMARY | 2024-02-26 22:51 | External Medical Summary | Summary of Care ---
Author Name Unknown Organization [facility] Address [address] [place] [address] Phone [phone] Care Team Providers Care Metal Products Fabricator Assembler Name Role Phone Leah Suarez DO Primary Care Provider [phone] Reason for Visit * Reason Onset Date Comments Appointment 12/17/2023 US Encounter Details Date Type Department Care Team (Late st Contact Info) Description 12/17/2023 Telephone Family Practice [facility] [address] [place] [address] Leah Suarez DO [address] [facility] [place] [address] Appointment ([place]) Allergies Active Allergy Reactions Criticality Noted Date Comments Prednisone Tachycardia 04/17/2016 Statins Muscle pain 12/25/2012 documented as of this encounter (statuses as of 12/17/2023) Medications Medication Sig Dispensed Refills Start Date End Date Status Diclofenac Sodium 1 % External Gel (Voltaren)Indicatio ns:Acute pain of right shoulder Apply topically to affected area 2 times a day. Apply to right shoulder 100 g 0 05/13/2023 Active Additional Information Patient not taking.Reported on 10/24/2023 Lisinopril-hydroCHL OROthiazide 20-12.5 MG Oral Tablet take 1/2 tablet by mouth every morning 45 Tablet 2 07/20/2023 Active Omeprazole 20 MG Oral Capsule Delayed Release (PriLOSEC)Indicatio ns:Abdominal pain, epigastric,Gastroes ophageal reflux disease without esophagitis TAKE 1 CAPSULE BY MOUTH EVERY MORNING 90 Capsule 1 10/10/2023 Active Vitamin B-12 1000 MCG Oral Tablet (Cyanocobalamin) Take 1 Tablet by mouth in the morning. 100 Tablet 3 10/10/2023 Active Atorvastatin Calcium 10 MG Oral Tablet (Lipitor)Indication s:Dyslipidemia, goal LDL below 70 Take one pill at bedtime 4 times a week. For CHOLESTEROL 60 Tablet 2 10/24/2023 Active buPROPion HCl ER (XL) 150 MG Oral Tablet Extended Release 24 Hour (Wellbutrin XL)Indications:TIMOTHY (generalized anxiety disorder) Take 1 Tablet by mouth in the morning. 30 Tablet 5 10/24/2023 Active documented as of this encounter (statuses as of 12/17/2023) Active Problems Problem Noted Date Diagnosed Date TIMOTHY (generalized anxiety disorder) 10/24/2023 Pulmonary hypertension 02/20/2023 Insomnia 02/20/2023 Age-related osteoporosis wit hout current pathological fracture 01/14/2023 Dyslipidemia, goal LDL below 70 01/14/2023 HTN, goal below 150/90 05/02/2017 Gastroesophageal reflux disease without esophagi tis 06/28/2014 LBBB (left bundle branch block) 04/20/2013 ADVANCE DIRECTIVE INFORMATION 09/25/2006 Overview: No, Advance Directive brochure given to patient at prior appointment. documented as of this encounter (statuses as of 12/17/2023) Resolved Problems Problem Noted Date Diagnosed Date Resolved Date Generalized anxiety disorder 07/27/2022 07/27/2022 Mild intermittent asthma, uncomplicated 07/27/2022 10/24/2023 Gastritis and gastroduodenitis 10/15/2013 06/28/2014 Overview: EGD 10/06/13, diffusely erythematous gastric mucosa, done because of chest pain Pre-operative cardiovascular examination 04/20/2013 06/28/2014 Abnormal EKG 04/20/2013 06/28/2014 Dyslipidemia, goal LDL below 130 09/22/2009 12/09/2019 Overview: Per Lipid Taxonomy. Mixed dyslipidemia 9 Overview: Per Lipid Taxonomy. Menopausal and postmenopausal disorder 06/28/2014 documented as of this encounter (statuses as of 12/17/2023) Immunizations Name Administration Dates Next Due COVID-19 mRNA, LNP-s, No Pre serve, 2-Dose Series (Oxtex) 07/05/2021,12/20/2020,11/22/2020 COVID-19, LNP-s, No Preserve , Temo-sucrose, Ages 12+ (Pfizer) 01/09/2022 Diptheria/Tetanus (Adult) 10/07/1996 Pneumococcal Conjugate Vacc, 13 Valent (Prevnar) 06/10/2015 Pneumococcal Polysaccharide PPV23 (Pneumovax) 08/17/2005 Season Influenza, Quad, PF, Adjuvanted, 65+ Yrs, IM (FLUAD) 07/05/2020 Seasonal Influenza, PF, 6 M & above, IM , (FluLaval or Fluzone) 09/06/2017 Seasonal Influenza, Quadriva lent Hd (Fluzone Hd) 07/24/2023,07/27/2022,2021 Seasonal Influenza, Quadriva lent, No Preserve, IM 11/02/2016 Seasonal Influenza, Split, I IV3, With Preserve, Inj 06/10/2015,06/28/2014,06/29/2013,07/03,07/31/2011,07/17/2010,07/29/2009 ,08/26/2006,08/17/2005 Seasonal Influenza, Trivalen t, Adjuvanted, 65+ yrs 07/21/2019 TDAP (age 10 and older)(Boostrix) 10/24/2023, Zoster Vaccine Recombinant (Shingrix) 08/05/2020 ,05/31/2020 documented as of this encounter Social History Tobacco Use Types Packs/Day Years Used Date Smoking Tobacco: Never Smokeless Tobacco: Never Alcohol Use Standard Drinks/Week Comments Never 0 (1 standard drink = 0.6 oz pur e alcohol) Rarely PHQ-2 Answer Date Recorded PHQ Adult Total Score 0 04/17/2023 Hunger Vital Sign Answer Date Recorded Within the past 12 months, y ou worried that your food would run out before you got the money to buy more. Never true 04/17/20 23 Within the past 12 months, t he food you bought just didn't last and you didn't have money to get more. Never true 04/17/2023 Sex and Gender Information Value Date Recorded Sex Assigned at Not on file Gender Identity Female 04/16/2022 9:15 AM EDT Sexual Orientation Straight 01/23/2021 9: 31 AM EDT Job Start Date Occupation Industry Not on file Not on file Not on file documented as of this encounter Functional Status Functional Status Response Date of Assess ment Are you deaf or do you have serious difficulty h earing? No 12/04/2016 Are you blind or do you have serious difficulty seeing, even when wearing glasses? No 12/04/2016 Do you have serious difficul ty walking or climbing stairs? (5 years old or older) No 12/04/2016 Do you have difficulty dress ing or bathing? (5 years old or older) No 12/04/2016 Because of a physical, menta l, or emotional condition, do you have difficulty doing errands alone such as visiting a doctor s office or shopping? (15 years old or older) No 12/04/19 17 Cognitive Status Response Date of Assessm ent Because of a physical, menta l, or emotional condition, do you have serious difficulty concentrating, remembering, or making decisions? (5 years old or older) No 12/04/2016 documented as of this encounter Miscellaneous Notes * Telephone Encounter - Mindy Harding OSA - 12/17/2023 1:49 PM EDT Patient scheduled and aware of 12/25 diagnostic combo. * Telephone Encounter - Mindy Harding OSA - 12/17/2023 12:07 PM EDT LMCell for patient to call and schedule dx combo. * Telephone Encounter - Franchesca Gillette OSA - 12/17/2023 11:11 AM EDT US BREAST AXILLA RIGHT Mindy, can you call pt to help schedule? Thanks! documented in this encounter Plan of Treatment Upcoming Encounters Date Type Department Care Team (Late st Contact Info) Description 12/26/2023 11:30 AM EDT Imaging Radiology [facility] [address] [place] [address] 12/26/2023 12:00 PM EDT Imaging Radiology [facility] [address] [place] [address] 04/21/2024 9:00 AM EDT Nurse Only Ancillary Department, [place] [address] [address] [place], Nurse Annual Wellness [address] [address] 04/27/2024 9:40 AM EDT Office Visit Family Practice [facility] [address] [place] [address] Leah Suarez, [address] [place] [address] Health Maintenance Due Date Last Done Comments *BISPHONATE OR OTHER ACCEPTABLE MEDICATION NEEDED FOR OSTEOPOROSIS (REFER TO SMARTSET #1146) 01/17/2023 COVID-19 Vaccine ( season) 2023 01/09/2022, 07/05/2021, 12/20/2020, Additional history exists Depression Screening 04/17/2024 04/17/2023 GFR 10/24/2024 10/24/2023, 02/04, 07/27/2022, Additional history exists DXA Scan 03/27/2025 03/27/2023, 03/08, 11/17/2020, Additional history exists Albumin/Creatinine Ratio 10/24/2026 10/24/2023, 07/08 DTaP,Tdap,and Td Vaccines (3 - Td or Tdap) 10/24/2033 10/24/2023, 12/25/2012, 10/07/1996 VITAMIN D LEVEL ONCE IN A LIFETIME-USE SMARTSET# [id number] Completed 03/17/2008 Pneumococcal Vaccine: 65+ Years Completed 06/10/2015, 08/17/2005 Zoster Vaccines Completed 08/05/2020, 05/31/2020 Influenza Vaccine (FLU shot) Completed , 07/27/2022, 2021, Additional history exists GARDASIL-HPV IMMUNIZATION SERIES Aged Out No longer eligible based on patient's age to complete this topic Hepatitis B Aged Out No longer eligi ble based on patient's age to complete this topic MENINGOCOCCAL (MENACTRA/MENVEO) Aged Out No longer eligible based on patient's age to complete this topic documented as of this encounter Medical Devices Implanted Type Area Shelver Device Identifier Shelf Expiration Date Model / Serial / Lot Lens Intraoc 20.5 - [id number] - [id number] Implanted:Qty: 1 on 12/24/2017 by Jeffrey Weber MD at OR [facility] Left: Eye BAUSCH & LOMB 05/06/2022 [id number] / [id number] / [id number] Lens Intraoc 20.5 - [id number] - [id number] Implanted:Qty: 1 on 01/07/2018 by Jeffrey Weber MD at OR [facility] Right: Eye BAUSCH & LOMB 07/06/2022 [id number] / [id number] / [id number] documented as of this encounter Advance Directives Latest Code Status on File Code Status Date Activated Date Inactivated Comments Full Code 01/07/2018 9:26 AM 01/07/2018 4:02 PM This or chasidy reflects the patients wishes and were consensually agreed upon. Code Status History Code Status Date Activated Date Inactivated Comments Full Code 12/24/2017 11:49 AM 12/24/2017 5:44 PM This order reflects the patients wishes and were consensually agreed upon. Care Teams Metal Products Fabricator Assembler Relationship Specialty Start Date End Date Leah Suarez DO [address] [address] [id number] PCP - General Family Medicine 12/26/22 documented as of this encounter
--- OUTSIDE RECORDS SUMMARY | 2024-02-26 22:51 | External Medical Summary | Summary of Care ---
Author Name Unknown Organization [facility] Address [address] [place] [address] Phone [phone] Care Team Providers Care Sanitation Supervisor Name Role Phone Leah Suarez DO Primary Care Provider [phone] Reason for Visit * Reason Onset Date Comments Appointment 12/17/2023 US Encounter Details Date Type Department Care Team (Late st Contact Info) Description 12/17/2023 Telephone Family Practice [facility] [address] [place] [address] Leah Suarez DO [address] [facility] [address] Appointment ([place]) Allergies Active Allergy Reactions Criticality [...] mRNA, LNP-s, No Pre serve, 2-Dose Series (Pfizer) 07/05/2021,12/20/2020,11/22/2020 COVID-19, LNP-s, No Preserve , Temo-sucrose, Ages 12+ (Pfizer) 01/09/2022 Pneumococcal Conjugate Vacc, 13 Valent (Prevnar) 06/10/2015 Season Influenza, Quad, PF, Adjuvanted, 65+ Yrs, IM (FLUAD) 07/05/2020 Seasonal Influenza, PF, 6 M & above, IM , (FluLaval or Fluzone) 09/06/2017 Seasonal Influenza, Quadriva lent Hd (Fluzone Hd) 07/24/2023,07/27/2022,2021 Seasonal Influenza, Quadriva lent, No Preserve, IM 11/02/2016 Seasonal Influenza, Split, I IV3, With Preserve, Inj 06/10/2015,06/28/2014,06/29/2013,2011,07/31/2011,07/17/2010,07/29/2009,1 10/26/2005 Seasonal Influenza, Trivalen t, Adjuvanted, 65+ yrs [...] encounter Miscellaneous Notes * Telephone Encounter - Franchesca Gillette OSA - 12/17/2023 11:11 AM EDT US BREAST AXILLA RIGHT Mindy, can you call pt to help schedule? Thanks! documented in this encounter Plan of Treatment Upcoming Encounters Date Type Department Care Team (Late st Contact Info) Description 12/17/2023 11:40 AM EDT Imaging Radiology [facility] [address] [facility] [place] [address] Arrived 04/21/2024 9:00 AM EDT Nurse Only Ancillary Department, [place] [address] [place] [facility] [place] [address] [place], Nurse Annual Wellness [address] [facility] [place] [address] 04/27/2024 9:40 AM EDT Office Visit Family Practice [facility] [address] [facility] [place] [address] Leah Suarez, DO [address] [place] [address] Health Maintenance Due Date Last Done Comments *BISPHONATE OR OTHER ACCEPTABLE MEDICATION NEEDED FOR OSTEOPOROSIS (REFER TO SMARTSET #1146) 01/17/2023 COVID-19 Vaccine (2022- season) 2023 01/09/2022, 07/05/2021, 12/20/2020, Additional history exists Depression Screening 04/17/2024 04/17/2023 GFR 10/24/2024 10/24/2023, 02/04, 07/27/2022, Additional history exists DXA Scan 03/27/2025 03/27/2023, 03/08, 11/17/2020, Additional history exists Albumin/Creatinine Ratio 10/24/2026 10/24/2023, 07/08 DTaP,Tdap,and Td Vaccines (3 - Td or Tdap) 10/24/2033 10/24/2023, 12/25/2012, 10/07/1996 VITAMIN D LEVEL ONCE IN A LIFETIME-USE SMARTSET# [id number] Completed 03/17/2008 Pneumococcal Vaccine: 65+ Years Completed [...] this encounter Medical Devices Implanted Type Area Public Works Director Device Identifier Shelf Expiration Date Model / Serial / Lot Lens Intraoc 20.5 - [id number] - [id number] Implanted:Qty: 1 on 12/24/2017 by Jeffrey Weber MD at OR [facility] Left: Eye BAUSCH [employer] LOMB 05/06/2022 [id number] / [id number] / [id number] Lens Intraoc 20.5 - [id number] - [id number] Implanted:Qty: 1 on 01/07/2018 by Jeffrey Weber MD at OR [facility] Right: Eye BAUSCH & LOMB 07/06/2022 [id number] / [id number] / [id number] documented as of this encounter Advance Directives [...] and were consensually agreed upon. Care Teams Sanitation Supervisor Relationship Specialty Start Date End Date Leah Suarez DO [address] [place] [address] PCP - General Family Medicine 12/26/22 documented as of this encounter
--- OUTSIDE RECORDS SUMMARY | 2024-02-26 22:51 | External Medical Summary | Summary of Care ---
Author Name Unknown Organization [facility] Address [address] [place] [address] Phone [phone] Care Team Providers Care Tube Machine Operator Helper Name Role Phone Linda Fulton MD Primary Care Provider Jes ashford Encounter Details Date Type Department Care Team (Latest Contact Info) Description 01/04/2016 10:40 AM EDT - 01/04/2016 11:59 PM EDT Hospital Encounter Radiology Film File [address] [place] [address] Discharge Disposition: Home - Self Care Allergies Active Allergy Reactions Criticality Noted Date Comments Prednisone Tachycardia 04/17/2016 Statins Muscle pain 12/25/2012 documented as of this encounter (statuses as of 12/19/2023) Medications No known medicationsdocumented as of this encounter (statuses as of 12/19/2023) Active Problems Problem Noted Date Diagnosed Date [...] as of this encounter (statuses as of 12/19/2023) Resolved Problems Problem Noted Date Diagnosed Date [...] as of this encounter (statuses as of 12/19/2023) Immunizations Name Administration Dates Next Due Pneumococcal Conjugate Vacc, 13 Valent (Prevnar) 06/10/2015 Seasonal Influenza, Split, I IV3, With Preserve, Inj 06/10/2015,06/28/2014,06/29/2013,2011,07/31/2011,07/17/2010,07/29/2009,1 10/26/2005 TDAP (age 10 and older)(Boostrix) 12/25/2012 documented as of this encounter Social History Tobacco Use Types Packs/Day Years Used Date Smoking Tobacco: Never Smokeless Tobacco: Never Alcohol Use Standard Drinks/Week Comments Yes 0 (1 standard drink = 0.6 oz pur e alcohol) social PHQ-2 Answer Date Recorded PHQ Adult Total [...] file Not on file Not on file COVID-19 Exposure Response Date Recorded In the last month, have you been in contact with someone who was confirmed or suspected to have Coronavirus / COVID-19? Unable to assess 02/19/2020 1:50 PM EDT documented as of this encounter Plan of Treatment Upcoming Encounters Date Type Department Care Team (Late st Contact Info) Description 12/26/2023 11:30 AM EDT Imaging Radiology [facility] [address] [facility] [place] [address] 12/26/2023 12:00 PM EDT Imaging Radiology [facility] [address] [facility] [place] [address] 04/21/2024 9:00 AM EDT Nurse Only Ancillary Department, [place] [address] [facility] [address] [place], Nurse Annual Well[facility] [address] [facility] [address] 04/27/2024 9:40 AM EDT Office Visit Family Practice [facility] [address] [facility] [place] [address] Leah Suarez, DO [address] [place] [address] Health Maintenance Due Date Last Done Comments [...] D LEVEL ONCE IN A LIFETIME-USE SMARTSET# 07065 Completed 03/17/2008 Pneumococcal Vaccine: 65+ Years Completed [...] this encounter Medical Devices Implanted Type Area Employee Benefits Attorney Device Identifier Shelf Expiration Date Model / Serial / Lot Lens Intraoc 20.5 - [id number] - [id number] Implanted:Qty: 1 on 12/24/2017 by Jeffrey Weber MD at OR [facility] Left: Eye [employer]OMB 05/06/2022 [id number] / [id number] / [id number] Lens Intraoc 20.5 - [id number] - [id number] Implanted:Qty: 1 on 01/07/2018 by Jeffrey Weber MD at OR [facility] Right: Eye [employer]CH [employer] LOMB 07/06/2022 [id number] / [id number] / [id number] documented as of this encounter Procedures Procedure Name Priority Date/Time Associated Diagnosis Comments RADIOLOGY EXAM - MAMMOGRAPHY (IMAGES ONLY, NO REPORT) Routine 01/04/2016 10:40 AM EDT documented in this encounter Results * RADIOLOGY EXAM - MAMMOGRAPHY (IMAGES ONLY, NO REPORT) (01/04/2016 10:40 AM EDT) 01/04/2016 10:3 6 AM EDT Narrative Scheduling, Silent - 12/18/2023 11:33 AM EDT This is an imaging study not interpreted or resulted by a [facility] or [facility] contracted radiologist. Leah Suarez DO RAD MAMMOGRAPHY documented in this encounter Advance Directives Latest Code Status [...] and were consensually agreed upon. Care Teams Tube Machine Operator Helper Relationship Specialty Start Date End Date Linda Fulton MD PCP - General 09/24/00 10/29/19 documented as of this encounter
--- OUTSIDE RECORDS SUMMARY | 2024-02-26 22:51 | External Medical Summary | Summary of Care ---
Author Name Unknown Organization [facility] Address [address] [place] [address] Phone [phone] Care Team Providers Care Caramel Maker Name Role Phone Leah Suarez DO Primary Care Provider [phone] Reason for Visit * Reason Onset Date Comments Test Results 12/18/2023 Encounter Details Date Type Department Care Team (Late st Contact Info) Description 12/18/2023 Telephone Family Practice [facility] [address] [facility] [place] [address] Leah Suarez DO [address] [facility] [place] [address] Test Results Allergies Active Allergy Reactions Criticality Noted Date Comments Prednisone Tachycardia 04/17/2016 Statins Muscle pain 12/25/2012 documented as of this encounter (statuses as of 12/20/2023) Medications Medication Sig Dispensed Refills Start Date [...] as of this encounter (statuses as of 12/20/2023) Active Problems Problem Noted Date Diagnosed Date [...] as of this encounter (statuses as of 12/20/2023) Resolved Problems Problem Noted Date Diagnosed Date [...] as of this encounter (statuses as of 12/20/2023) Immunizations Name Administration Dates Next Due COVID-19 [...] encounter Miscellaneous Notes * Telephone Encounter - Corina Garibay LPN - 12/20/2023 9:01 AM EDT Called pt, she is having pain and weakness, but feels the PT is making it worse. She would like to stop. * Telephone Encounter - Leah Suarez DO - 12/19/2023 7:01 PM EDT If continues to have symptoms of pain/weakness would continue If no sx then does not need to continue Thank you * Telephone Encounter - Modesta Nicholson LPN - 12/19/2023 1:53 PM EDT Patient returned call. Informed of message. Verbalized understanding. If it is mild arthritis can she stop PT? * Telephone Encounter - Jen Cardoza LPN - 12/19/2023 10:11 AM EDT Called and LM for pt to return call regarding message below * Telephone Encounter - Leah Suarez DO - 12/18/2023 3:16 PM EDT Mild arthritis noted on xray no acute abnormalities Thank you documented in this encounter Plan of Treatment Upcoming Encounters Date Type Department Care Team (Late st Contact Info) Description 12/26/2023 11:30 AM EDT Imaging Radiology [facility] [address] [facility] [address] [facility] [place] [address] 12/26/2023 12:00 PM EDT Imaging Radiology [facility] [address] [facility] [place] [address] 04/21/2024 9:00 AM EDT Nurse Only Ancillary Department, [place] [address] [place] [address] [place], Nurse Annual Wellness [address] [place] [address] 04/27/2024 9:40 AM EDT Office Visit Family Practice [facility] [address] [facility] [place] [address] Leah Suarez DO [address] [facility] [place] [address] Health Maintenance Due Date Last Done Comments [...] D LEVEL ONCE IN A LIFETIME-USE SMARTSET# 89343 Completed 03/17/2008 Pneumococcal Vaccine: 65+ Years Completed [...] this encounter Medical Devices Implanted Type Area Dinkey Engine Operator Device Identifier Shelf Expiration Date Model / Serial / Lot Lens Intraoc 20.5 - [id number] - [id number] Implanted:Qty: 1 on 12/24/2017 by Jeffrey Weber MD at OR [facility] Left: Eye [employer]OMB 05/06/2022 [id number] / [id number] / [id number] Lens Intraoc 20.5 - [id number] - [id number] Implanted:Qty: 1 on 01/07/2018 by Jeffrey Weber MD at OR [facility] Right: Eye [employer]USCH [employer] LOMB 07/06/2022 [id number] / [id number] / [id number] documented as of this encounter Advance Directives [...] and were consensually agreed upon. Care Teams Caramel Maker Relationship Specialty Start Date End Date Leah Suarez DO [address] [place] [address] PCP - General Family Medicine 12/26/22 documented as of this encounter
--- OUTSIDE RECORDS SUMMARY | 2024-02-26 22:51 | External Medical Summary | Summary of Care ---
Author Name Unknown Organization [facility] Address [address] [place] [address] Phone [phone] Care Team Providers Care Slot Floorperson Name Role Phone Leah Suarez DO Primary Care Provider [phone] Reason for Visit * Reason Onset Date Comments Appointment 12/17/2023 US Encounter Details Date Type Department Care Team (Late st Contact Info) Description 12/17/2023 Telephone Family Practice [facility] [address] [place] [address] Leah Suarez DO [address] [address] Appointment ([place]) Allergies Active Allergy Reactions Criticality [...] mRNA, LNP-s, No Pre serve, 2-Dose Series ([employer]) 07/05/2021,12/20/2020,11/22/2020 COVID-19, LNP-s, No Preserve , Temo-sucrose, [...] Care Team (Late st Contact Info) Description 04/21/2024 9:00 AM EDT Nurse Only Ancillary Department, [place] [address] [place] [address] [place] Nurse Annual Wellness [address] [place] [address] 04/27/2024 9:40 AM EDT Office Visit Family [facility] [address] [place] [address] Leah Suarez, [address] [place] [address] Health Maintenance Due Date Last Done Comments [...] D LEVEL ONCE IN A LIFETIME-USE SMARTSET# 31176 Completed 03/17/2008 Pneumococcal Vaccine: 65+ Years Completed [...] this encounter Medical Devices Implanted Type Area Management Technician Device Identifier Shelf Expiration Date Model / Serial / Lot Lens Intraoc 20.5 - [id number] - [id number] Implanted:Qty: 1 on 12/24/2017 by Jeffrey Weber MD at OR [facility] Left: Eye BAUSCH & LOMB 05/06/2022 [id number] / [id number] / [id number] Lens Intraoc 20.5 - [id number] - [id number] Implanted:Qty: 1 on 01/07/2018 by Jeffrey Weber MD at OR [facility] Right: Eye BAUSCH & LOMB 07/06/2022 [id number] / [id number] / [id number] documented as of this encounter Advance Directives [...] and were consensually agreed upon. Care Teams Slot Floorperson Relationship Specialty Start Date End Date Leah Suarez DO [address] [place] [id number] PCP - General Family Medicine 12/26/22 documented as of this encounter
--- OUTSIDE RECORDS SUMMARY | 2024-02-26 22:51 | External Medical Summary | Summary of Care ---
Author Name Unknown Organization [facility] Address [address] [place] [facility] [place] [address] Phone [phone] Care Team Providers Care Clamp Remover Name Role Phone Leah Suarez DO Primary Care Provider Encounter Details Date Type Department Care Team (Late st Contact Info) Description 12/26/2023 11:30 AM EDT Imaging Radiology [address] [place] [address] Breast pain, right Allergies Active Allergy Reactions Criticality Noted Date Comments Prednisone Tachycardia 04/17/2016 Statins Muscle pain 12/25/2012 documented as of this encounter (statuses as of 12/26/2023) Medications Medication Sig Dispensed Refills Start Date [...] as of this encounter (statuses as of 12/26/2023) Active Problems Problem Noted Date Diagnosed Date [...] as of this encounter (statuses as of 12/26/2023) Resolved Problems Problem Noted Date Diagnosed Date [...] as of this encounter (statuses as of 12/26/2023) Immunizations Name Administration Dates Next Due COVID-19 mRNA, LNP-s, No Pre serve, 2-Dose Series ([employer]) 07/05/2021,12/20/2020,11/22/2020 COVID-19, LNP-s, No Preserve , Temo-sucrose, [...] No 12/04/2016 documented as of this encounter Plan of Treatment Upcoming Encounters Date Type Department Care Team (Late st Contact Info) Description 04/21/2024 9:00 AM EDT Nurse Only Ancillary Department, [place] [address] [place] [facility] [place] [address] [place], Nurse Annual Wellness [address] [place] [address] 04/27/2024 9:40 AM EDT Office Visit Family Practice [facility] [address] [place] [address] Leah Suarez, [address] [place] [address] Health Maintenance Due Date Last Done Comments [...] D LEVEL ONCE IN A LIFETIME-USE SMARTSET# [id number] Completed 03/17/2008 Pneumococcal Vaccine: 65+ Years Completed [...] this encounter Medical Devices Implanted Type Area Hull Outfit Supervisor Device Identifier Shelf Expiration Date Model / Serial / Lot Lens Intraoc 20.5 - [id number] - [id number] Implanted:Qty: 1 on 12/24/2017 by Jeffrey Weber MD at OR [facility] Left: Eye BAUSCH & LOMB 05/06/2022 [id number] / [id number] / [id number] Lens Intraoc 20.5 - [id number] - [id number] Implanted:Qty: 1 on 01/07/2018 by Jeffrey Weber MD at OR [facility] Right: Eye BAUSCH & LOMB 07/06/2022 [id number] / [id number] / [id number] documented as of this encounter Procedures Procedure Name Priority Date/Time Associated Diagnosis Comments MAMMOGRAM DIAGNOSTIC LYNN BILATERAL Routine 12/26/2023 11:34 AM EDT Breast pain, right documented in this encounter Results * MAMMOGRAM DIAGNOSTIC LYNN BILATERAL (12/26/2023 11:34 AM EDT) Anatomical Region Laterality Modality Breast Bilateral Mammography Narrative 12/26/2023 12:35 PM EDT Result MAMMOGRAM DIAGNOSTIC LYNN BILATERAL History Breast pain, right The patient has no documented relevant family history. Films Compared Mammogram dated 01/04/2016 and 01/03/2015. Findings The breasts are heterogeneously dense, which may obscure small masses. Left No suspicious change has occurred as compared to the most recent prior mammograms dating back to 01/03/2015. Circumscribed fat density subcentimeter masses are stable. No suspicious mass, asymmetry, distortion or calcification is identified Right No suspicious change has occurred as compared to the most recent prior mammograms dating back to 01/03/2015. Circumscribed fat density subcentimeter masses are stable. No suspicious mass, asymmetry, distortion or calcification is identified Impression Bilateral No mammographic evidence of malignancy. BI-RADS Category: 2 - Benign. Recommendation Clinical follow-up regarding pain in the right axillary region. Resume annual screening mammography is recommended for both breasts. Digital breast tomosynthesis was performed. This digital mammogram has been analyzed with the computer aided detection system. This notice contains the results of your recent mammogram, including information about breast density. If your mammogram shows that your breast tissue is dense, you should know that dense breast tissue is a common finding and is not abnormal. Statistics show many women could have dense or highly dense breasts. Dense breast tissue can make it harder to find cancer on a mammogram and may be associated with an increased risk of cancer. This information about the result of your mammogram is given to you to raise your awareness and to inform your conversations with your physician. Together, you can decide which screening options are right for you, based on your mammogram results, individual risk factors or physical examination. A report of your results was sent to your physician. Your mammographic breast density on today's study is described above. There are four categories of breast density on mammography. Fatty breasts and those with scattered fibroglandular tissue are not considered dense. Heterogeneously dense or extremely dense tissue is considered "dense". Please understand that assessment of breast density may vary from year to year. This examination was performed at [facility], [address] [place] [address]. Leah Marlys Erick DO RAD MAMMOGRAPHY documented in this encounter Visit Diagnoses Diagnosis Breast pain, right Mastodynia documented in this encounter Advance Directives Latest Code Status on File Code Status Date Activated Date Inactivated Comments Full Code 01/07/2018 9:26 AM 01/07/2018 4:02 PM This o rder reflects the patients wishes and were consensually agreed upon. Code Status History Code Status Date Activated Date Inactivated Comments Full Code 12/24/2017 11:49 AM 12/24/2017 5:44 PM This order reflects the patients wishes and were consensually agreed upon. Care Teams Clamp Remover Relationship Specialty Start Date End Date Leah Suarez DO [address] [place] [id number] PCP - General Family Medicine 12/26/22 documented as of this encounter
--- OUTSIDE RECORDS SUMMARY | 2024-02-26 22:51 | External Medical Summary | Summary of Care ---
Author Name Unknown Organization [facility] Address [address] [place] [address] Phone [phone] Care Team Providers Care Woodworking Belt Sander Name Role Phone Linda Fulton MD Primary Care Provider Jes ashford Encounter Details Date Type Department Care Team (Latest Contact Info) Description 01/03/2015 11:25 AM EDT - 01/03/2015 11:59 PM EDT Hospital Encounter Radiology Film File [address] [place] [address] Discharge Disposition: Home - Self [...] 12/19/2023) Immunizations Name Administration Dates Next Due Seasonal Influenza, Split, I IV3, With Preserve, Inj 06/28/2014,06/29/2013,07/03/2012, 0 11,07/17/2010,07/29/2009,08/26/2006 TDAP (age 10 and older)(Boostrix) 12/25/2012 documented [...] Description 12/26/2023 11:30 AM EDT Imaging Radiology [facility]st [facility] [address] [place] [address] 12/26/2023 12:00 PM EDT Imaging Radiology [facility] [place] [address] 04/21/2024 9:00 AM EDT Nurse Only Ancillary Department, [place] [address] [facility] [address] [place], Nurse Annual Wellness [address] [facility] [address] 04/27/2024 9:40 AM EDT Office Visit Family Practice [facility] [address] [place] [address] Leah Suarez, [address] [place] [address] Health Maintenance Due Date Last Done Comments [...] D LEVEL ONCE IN A LIFETIME-USE SMARTSET# 12527 Completed 03/17/2008 Pneumococcal Vaccine: 65+ Years Completed [...] this encounter Medical Devices Implanted Type Area Spreader Device Identifier Shelf Expiration Date Model / Serial / Lot Lens Intraoc 20.5 - [id number] - [id number] Implanted:Qty: 1 on 12/24/2017 by Jeffrey Weber MD at OR [facility] Left: Eye BAUSCH & LOMB 05/06/2022 [id number] / [id number] / [id number] Lens Intraoc 20.5 - [id number] - [id number] Implanted:Qty: 1 on 01/07/2018 by Jeffrey Weber MD at OR [facility] Right: Eye BAUSCH & LOMB 07/06/2022 [id number] / [id number] / [id number] documented as of this encounter Procedures Procedure Name Priority Date/Time Associated Diagnosis Comments RADIOLOGY EXAM - MAMMOGRAPHY (IMAGES ONLY, NO REPORT) Routine 01/03/2015 11:25 AM EDT documented in this encounter Results * RADIOLOGY EXAM - MAMMOGRAPHY (IMAGES ONLY, NO REPORT) (01/03/2015 11:25 AM EDT) 01/03/2015 11:2 1 AM EDT Narrative Scheduling, Silent - 12/18/2023 11:34 AM EDT This is an imaging study not interpreted or resulted by a [facility] contracted radiologist. Leah Suarez DO RAD MAMMOGRAPHY [...] and were consensually agreed upon. Care Teams Woodworking Belt Sander Relationship Specialty Start Date End Date Linda Fulton MD PCP - General 09/24/00 10/29/19 documented as of this encounter
--- OUTSIDE RECORDS SUMMARY | 2024-02-26 22:52 | External Medical Summary ---
Author Name Unknown Address Unknown Organization [id number]:[facility] [place] [address] - [address] [place] [address] Laboratory Report Ordering Provider Test Date Status ISIDRO ADKINS 10/24/2023 09:36:26 Final Observation Date Value Abnormality Reference (Units ) Status BUN 10/24/2023 09:36:26 11 6-20 (mg/dL) Final Creatinine 10/24/2023 09:36:26 0.7 0.5-1.0 (mg/dL) Final Glomerular filtration rate/1.73 sq M.predicted [Volume Rate/Area] in Serum, Plasma or Blood by Creatinine-based formula (CKD-EPI) 10/24/2023 09:36:26 84 >=60 (mL/min) Final eGFR is calculated based on the CKD-EPI 2020 equation SODIUM 10/24/2023 09:36:26 138 135-146 (m mol/L) Final Potassium 10/24/2023 09:36:26 4.6 3.5-5.1 (m mol/L) Final Cl 10/24/2023 09:36:26 100 98-107 (mm ol/L) Final CO2 10/24/2023 09:36:26 24 22-32 (mmo l/L) Final Anion gap 10/24/2023 09:36:26 14 7-15 (mmol /L) Final Glucose 10/24/2023 09:36:26 97 70-120 (mg /dL) Final Albumin 10/24/2023 09:36:26 4.3 3.8-5.0 (g /dL) Final AST (Aspartate aminotransferase) 10/24/2023 09:36:26 18 10-35 (U/L) Final Alk Phos 10/24/2023 09:36:26 104 35-130 (U/ L) Final Bilirubin, Total 10/24/2023 09:36:26 0.2 <=1 .2 (mg/dL) Final Calcium 10/24/2023 09:36:26 9.8 8.4-10.2 ( mg/dL) Final Protein 10/24/2023 09:36:26 7.4 6.0-8.3 (g /dL) Final ALT (Alanine aminotransferase) 10/24/2023 09:36:26 17 10-35 (U/L) Final Performing Location [facility] [address] - [address] [facility] [address]
--- OUTSIDE RECORDS SUMMARY | 2024-02-26 22:52 | External Medical Summary ---
Author Name Unknown Address Unknown Organization [id number]:[facility] [address] [place] [address] Laboratory Report Ordering Provider Test Date Status ISIDRO ADKINS 10/24/2023 09:36:26 Final Observation Date Value Abnormality Reference (Units ) Status Vitamin B12 10/24/2023 09:36:26 286 [id number] (pg/mL) Final Performing Location LABORATORY [facility] - [address] [place] [address]
--- OUTSIDE RECORDS SUMMARY | 2024-02-26 22:52 | External Medical Summary ---
Author Name Unknown Address Unknown Organization [id number]:[facility] [place] [address] [place] [address] [place] [address] Laboratory Report Ordering Provider Test Date Status ISIDRO ADKINS 10/24/2023 09:36:26 Final Observation Date Value Abnormality Reference (Units ) Status TSH 10/24/2023 09:36:26 2.35 0.27-4.20 (uIU/mL) Final Performing Location [facility] [place] - [address] [facility] [address]
--- OUTSIDE RECORDS SUMMARY | 2024-02-26 22:52 | External Medical Summary ---
Author Name Unknown Address Unknown Organization [id number][facility] [place] [address] [place] [address] Laboratory Report Ordering Provider Test Date Status PEPITO FITCH 10/24/2023 09:36:26 Final Observation Date Value Abnormality Reference (Units ) Status MYCODE SPECIMEN-SST 10/24/2023 09:36:26 Freezing of extracted DNA, whole blood and/or serum. Final Performing Location [facility] [place] [address] [place] [address]
--- OUTSIDE RECORDS SUMMARY | 2024-02-26 22:52 | External Medical Summary ---
Author Name Unknown Address Unknown Organization [id number]:[facility]ATORY [facility] - [address] [place] [address] Laboratory Report Ordering Provider Test Date Status ISIDRO ADKINS 10/24/2023 09:38:42 Final Normal: <30 mg/g creatinine< br/>High: 30-300 mg/g creatinine
Very High: >300 mg/g creatinine
Nephrotic: >2200 mg/g creatinine Observation Date Value Abnormality Reference (Units ) Status Albumin, Urine 10/24/2023 09:38:42 <1.20 (mg/dL) Final Creatinine, Urine 10/24/2023 09:38:42 52 (mg/dL) Final Albumin/Creatinine [Mass Ratio] in Urine 10/24/2023 09:38:42 <23 <30 (mg/g Creat) Final Performing Location LAB[facility] [place] - [address] [facility] [address]
--- OUTSIDE RECORDS SUMMARY | 2024-02-26 22:52 | External Medical Summary ---
Author Name Unknown Address Unknown Organization K01:[facility] [place] - [address] [facility] [address] Laboratory Report Ordering Provider Test Date Status ISIDRO ADKINS 10/24/2023 09:36:26 Final Observation Date Value Abnormality Reference (Units ) Status WBC, Total 10/24/2023 09:36:26 10.86 Above high normal 4.00-10.80 (K/uL) Final RBC 10/24/2023 09:36:26 4.66 3.85-5.15 (M/uL) Final Hemoglobin 10/24/2023 09:36:26 13.0 12.0-15.3 (g/dL) Final HCT 10/24/2023 09:36:26 41.9 36.0-45.2 (%) Final MCV 10/24/2023 09:36:26 89.9 81.5-97.5 (fL) Final MCH 10/24/2023 09:36:26 27.9 27.0-34.0 (pg) Final MCHC 10/24/2023 09:36:26 31.0 32.0-36.0 (g/dL) Final RDW 10/24/2023 09:36:26 14.0 11.5-15.5 (%) Final Platelets 10/24/2023 09:36:26 301 140-400 (K/uL) Final MPV 10/24/2023 09:36:26 11.9 6.6-11.1 (fL) Final Nucleated erythrocytes/100 leukocytes [Ratio] in Blood by Automated count 10/24/2023 09:36:26 0 <=0 (/100 WBCs) Final Performing Location [facility] [place] - [address] [facility] [address]
--- OUTSIDE RECORDS SUMMARY | 2024-02-26 22:52 | External Medical Summary | Summary of Care ---
Author Name Unknown Organization [facility] Address [address] [place] [address] Phone [phone] Care Team Providers Care Lip Reading Teacher Name Role Phone Leah Dozier DO Primary Care Provider [phone] Reason for Visit * Reason Comments Follow Up Pt here for a 3 jessica h f/u apt, has issue with taking Sertraline has some shakes on Lt side. Encounter Details Date Type Department Care Team (Late st Contact Info) Description 10/24/2023 9:00 AM EST Office Visit [facility] [address] [place] [place] [id number] Leah Dozier DO [address] [place] [address] HTN, goal below 150/90*; Dyslipidemia, goal LDL below 70; Pulmonary hypertension (HCC); TIMOTHY (generalized anxiety disorder); Age-related osteoporosis without current pathological fracture; Gastroesophageal reflux disease, unspecified whether esophagitis present; Encounter for long-term (current) use of medications Allergies Active Allergy Reactions Criticality Noted Date Comments Prednisone Tachycardia 04/17/2016 Statins Muscle pain 12/25/2012 documented as of this encounter (statuses as of 10/24/2023) Medications Medication Sig Dispensed Refills Start Date End Date Status Diclofenac Sodium 1 % External Gel (Voltaren)Indica tions:Acute pain of right shoulder Apply topically to affected area 2 times a day. Apply to right shoulder 100 g 0 3 Active Additional Information Patient not taking.Reported on 10/24/2023 Lisinopril-hydro CHLOROthiazide 20-12.5 MG Oral Tablet take 1/2 tablet by mouth every morning 45 Tablet 2 3 Active Omeprazole 20 MG Oral Capsule Delayed Release (PriLOSEC)Indica tions:Abdominal pain, epigastric,Gastr oesophageal reflux disease without esophagitis TAKE 1 CAPSULE BY MOUTH EVERY MORNING 90 Capsule 1 4 Active Vitamin B-12 1000 MCG Oral Tablet (Cyanocobalamin) Take 1 Tablet by mouth in the morning. 100 Tablet 3 4 Active Atorvastatin Calcium 10 MG Oral Tablet (Lipitor)Indicat ions:Dyslipidemi a, goal LDL below 70 Take one pill at bedtime 4 times a week. For CHOLESTEROL 60 Tablet 2 4 Active buPROPion HCl ER (XL) 150 MG Oral Tablet Extended Release 24 Hour (Wellbutrin XL)Indications:G AD (generalized anxiety disorder) Take 1 Tablet by mouth in the morning. 30 Tablet 5 4 Active Kdxympe-Mbmjjq-M cell Pertussis 5-2.5-18.5 LF-MCG/0.5 Suspension Prefilled Syringe (Boostrix) Inject 0.5 mL into a large muscle once for 1 dose. As directed 0.5 mL 0 4 10/25/19 24 Active Atorvastatin Calcium 10 MG Oral Tablet (Lipitor)Indicat ions:Dyslipidemi a, goal LDL below 70 Take one pill at bedtime 4 times a week. For CHOLESTEROL 60 Tablet 1 3 10/24/19 24 Discontinued(Ref ill) hydrOXYzine HCl 25 MG Oral TabletIndication s:Insomnia, unspecified type Take 0.5 Tablets by mouth at bedtime as needed (insomnia). 30 Tablet 1 3 10/24/19 24 Discontinued Sertraline HCl 50 MG Oral Tablet (Zoloft)Indicati ons:TIMOTHY (generalized anxiety disorder) Take 1 Tablet by mouth in the morning. 90 Tablet 3 3 10/24/19 24 Discontinued documented as of this encounter (statuses as of 10/24/2023) Active Problems Problem Noted Date Diagnosed Date [...] as of this encounter (statuses as of 10/24/2023) Resolved Problems Problem Noted Date Diagnosed Date [...] as of this encounter (statuses as of 10/24/2023) Immunizations Name Administration Dates Next Due COVID-19 mRNA, LNP-s, No Pre serve, 2-Dose Series ([employer]) 07/05/2021,12/20/2020,11/22/2020 COVID-19, LNP-s, No Preserve , Temo-sucrose, [...] yrs 07/21/2019 TDAP (age 10 and older)(Boostrix) 12/25/2012 Zoster Vaccine Recombinant (Shingrix) 08/05/2020 ,05/31/2020 documented as of this encounter Social History Tobacco Use Types Packs/Day Years Used Date Smoking Tobacco: Never Smokeless Tobacco: Never Tobacco Cessation:Counseling Given: Not Answered Alcohol Use Standard Drinks/Week Comments Never 0 [...] on file documented as of this encounter Last Filed Vital Signs Vital Sign Reading Time Taken Comments Blood Pressure 128/56 10/24/2023 8:55 AM EST Pulse 77 10/24/2023 8:55 AM EST Temperature 36.3 C (97.3 F) 10/24/2023 8:55 AM ES T Respiratory Rate 16 10/24/2023 8:55 AM EST Oxygen Saturation - - Inhaled Oxygen Concentration - - Weight 58.5 kg (129 lb) 10/24/2023 8:55 AM EST Height 149.9 cm (4' 11") 10/24/2023 8:55 AM EST Body Mass Index 26.05 10/24/2023 8:55 AM EST documented in this encounter Functional Status Functional Status Response [...] No 12/04/2016 documented as of this encounter Progress Notes * Leah Dozier, DO - 10/24/2023 9:09 AM EST Subjective: Jade Yanes is a 83 year old female. Chief Complaint Patient presents with Follow Up Pt here for a 3 month f/u apt, has issue with taking Sertraline has some shakes on Lt side. There are no exam notes on file for this visit. HPI: This is a 83 year old female with PMHx as below presents with recheck Htn - lisinopril - hctz Lipitor - dl Ppi - gerd TIMOTHY - will start zoloft - having issues with med - will stop and do trial wellbutrin Osteoporosis - not on meds Echo 2022 stable - pos mild PHTN Labs ordered Issues with R shoulder - seeing ortho, PT and chiro - may need surgery VSS Health Maintenance Due Topic Date Due *SPIROMETRY ONCE FOR ASTHMA-ADULT Never done DTaP,Tdap,and Td Vaccines (2 - Td or Tdap) 12/25/2022 *BISPHONATE OR OTHER ACCEPTABLE MEDICATION NEEDED FOR OSTEOPOROSIS (REFER TO SMARTSET #1146) Never done COVID-19 Vaccine (2022- season) 2023 Patient Active Problem List Diagnosis Code ADVANCE DIRECTIVE INFORMATION LBBB (left bundle branch block) I44.7 Gastroesophageal reflux disease without esophagitis K21.9 HTN, goal below 150/90 I10 Mild intermittent asthma, uncomplicated J45.20 Age-related osteoporosis without current pathological fracture M81.0 Dyslipidemia, goal LDL below 70 E78.5 Pulmonary hypertension (HCC) I27.20 Insomnia G47.00 TIMOTHY (generalized anxiety disorder) F41.1 Current Outpatient Medications Medication Sig Dispense Refill Lisinopril-hydroCHLOROthiazide 20-12.5 MG Oral Tablet take 1/2 tablet by mouth every morning 45 Tablet 2 Sertraline HCl 50 MG Oral Tablet (Zoloft) Take 1 Tablet by mouth in the morning. 90 Tablet 3 Omeprazole 20 MG Oral Capsule Delayed Release (PriLOSEC) TAKE 1 CAPSULE BY MOUTH EVERY MORNING 90 Capsule 1 Vitamin B-12 1000 MCG Oral Tablet (Cyanocobalamin) Take 1 Tablet by mouth in the morning. 100 Tablet 3 Atorvastatin Calcium 10 MG Oral Tablet (Lipitor) Take one pill at bedtime 4 times a week. For CHOLESTEROL 60 Tablet 2 hydrOXYzine HCl 25 MG Oral Tablet Take 0.5 Tablets by mouth at bedtime as needed (insomnia). (Patient not taking: Reported on 10/24/2023) 30 Tablet 1 Diclofenac Sodium 1 % External Gel (Voltaren) Apply topically to affected area 2 times a day. Applyto right shoulder (Patient not taking: Reported on 10/24/2023) 100 g 0 No current facility-administered medications for this visit. Past Medical History: Diagnosis Date Dyslipidemia, goal LDL below 130 09/22/2009 Per Lipid Taxonomy. Gastritis and gastroduodenitis 10/15/2013 EGD 10/06/13, diffusely erythematous gastric mucosa, done because of chest pain Generalized anxiety disorder Left bundle branch block normal nuc med stress 04/18 Menopausal and postmenopausal disorder Mixed dyslipidemia Past Surgical History: Procedure Laterality Date COLONOSCOPY, DIAGNOSTIC (RECTUM) 07/22/2014 Tortuous sigmoid, diverticulosis/COLONOSCOPY FLEXIBLE PROXIMAL DIAGNOSTIC performed by Arsh Aguirre MD at ENDOSCOPY [facility] EGD, FLEXIBLE, DIAGNOSTIC 10/06/2013 ESOPHAGOGASTRODUODENOSCOPY (EGD), FLEXIBLE, TRANSORAL, DIAGNOSTIC performed by Arsh Aguirre MD at [facility]COPY [facility] EGD, FLEXIBLE, DIAGNOSTIC 07/22/2014 ESOPHAGOGASTRODUODENOSCOPY (EGD), FLEXIBLE, TRANSORAL, DIAGNOSTIC performed by Arsh Aguirre MD at ENDOSCOPY [facility] INFORMATION Left arthroscopic surgery - with hardware. LAPAROSCOPY; CHOLECYSTECTOMY N/A 12/04/2016 12/04/2016 LAPAROSCOPIC CHOLECYSTECTOMY performed by Rosalina Murphy MD at OR [facility] REMOVE CATARACT, INSERT LENS PROSTH Left 12/24/2017 left EXTRACAPSULAR CATARACT REMOVAL WITH INTRAOCULAR LENS performed by Jeffrey Weber MD at OR [facility] REMOVE CATARACT, INSERT LENS PROSTH Right 01/07/2018 right EXTRACAPSULAR CATARACT REMOVAL WITH INTRAOCULAR LENS performed by Jeffrey Weber MD at OR [facility] Review of patient's allergies indicates: Allergen Reactions Prednisone Tachycardia Statins Muscle pain Family History Problem Relation Age of Onset Heart Disorder Mother age 64 Family Status Relation Status Mo (Not Specified) Social History Socioeconomic History Marital status: Spouse name: Not on file Number of children: 3 Years of education: Not on file Highest education level: Not on file Occupational History Not on file Tobacco Use Smoking status: Never Smokeless tobacco: Never Vaping Use Vaping Use: Never used Substance and Sexual Activity Alcohol use: Never Comment: Rarely Drug use: No Sexual activity: Never Other Topics Concern Not on file Social History Narrative Not on file Social Determinants of Health Financial Resource Strain: Not on file Food Insecurity: No Food Insecurity (04/17/2023) Hunger Vital Sign Worried About Running Out of Food in the Last Year: Never true Ran Out of Food in the Last Year: Never true Transportation Needs: Not on file Physical Activity: Not on file Stress: Not on file Social Connections: Not on file Intimate Partner Violence: Not on file Housing Stability: Not on file Review of Systems: As per HPI all other ROS negative. Wt Readings from Last 3 Encounters: 10/24/23 58.5 kg (129 lb) 07/24/23 60.3 kg (133 lb) 07/16/23 60.2 kg (132 lb 12.8 oz) Results for orders placed or performed in visit on 05/06/23 ECHO, COMPLETE (2D), TRANS-THORACIC Result Value Ref Range LEFT VENTRICULAR EJECTION FRACTION 65 % OBJECTIVE: Physical Exam: BP 128/56 | Pulse 77 | Temp 36.3 C (97.3 F) (Tympanic) | Resp 16 | Ht 1.499 m (4' 11") | Wt 58.5 kg (129 lb) | BMI 26.05 kg/m | BSA 1.56 m General: alert, healthy, and no distress Head: Normocephalic, No masses, lesions, tenderness or abnormalities Ears: External ears normal, Canals clear, TM's Normal Oropharynx: no exudate, no erythema, lips, buccal mucosa, and tongue normal, and mucous membranes are moist Neck: supple, no adenopathy, no bruits Heart: regular rate & rhythm, no murmur, and no gallops Lungs: lungs clear to auscultation Abdomen: abdomen soft, non-tender, normal bowel sounds, and no masses or organomegaly Extremities: no joint deformities, effusion, or inflammation, no edema HTN, goal below 150/90 (Primary) - CBC WITH WBC DIFFERENTIAL; Future; Expected date: 10/24/2023 - COMPREHENSIVE METABOLIC PANEL; Future; Expected date: 10/24/2023 - TSH WITH FREE T4 IF INDICATED; Future; Expected date: 10/24/2023 - LIPID PANEL WITH DIRECT LDL IF TG IS HIGH; Future; Expected date: 10/24/2023 - ALBUMIN / CREATININE RATIO, URINE; Future; Expected date: 10/24/2023 Dyslipidemia, goal LDL below 70 - Atorvastatin Calcium 10 MG Oral Tablet (Lipitor); Take one pill at bedtime 4 times a week. For CHOLESTEROL - CBC WITH WBC DIFFERENTIAL; Future; Expected date: 10/24/2023 - COMPREHENSIVE METABOLIC PANEL; Future; Expected date: 10/24/2023 - TSH WITH FREE T4 IF INDICATED; Future; Expected date: 10/24/2023 - LIPID PANEL WITH DIRECT LDL IF TG IS HIGH; Future; Expected date: 10/24/2023 Pulmonary hypertension (HCC) - CBC WITH WBC DIFFERENTIAL; Future; Expected date: 10/24/2023 - COMPREHENSIVE METABOLIC PANEL; Future; Expected date: 10/24/2023 - TSH WITH FREE T4 IF INDICATED; Future; Expected date: 10/24/2023 - LIPID PANEL WITH DIRECT LDL IF TG IS HIGH; Future; Expected date: 10/24/2023 TIMOTHY (generalized anxiety disorder) - buPROPion HCl ER (XL) 150 MG Oral Tablet Extended Release 24 Hour (Wellbutrin XL); Take 1 Tablet by mouth in the morning. Age-related osteoporosis without current pathological fracture Gastroesophageal reflux disease, unspecified whether esophagitis present - VITAMIN B12; Future; Expected date: 10/24/2023 - MAGNESIUM; Future; Expected date: 10/24/2023 - CBC WITH WBC DIFFERENTIAL; Future; Expected date: 10/24/2023 - COMPREHENSIVE METABOLIC PANEL; Future; Expected date: 10/24/2023 Encounter for long-term (current) use of medications - VITAMIN B12; Future; Expected date: 10/24/2023 - MAGNESIUM; Future; Expected date: 10/24/2023 Other orders - Suwkmyc-Axnwcp-Itodx Pertussis 5-2.5-18.5 LF-MCG/0.5 Suspension Prefilled Syringe (Boostrix); Inject 0.5 mL into a large muscle once for 1 dose. As directed Follow Up: Return in about 4 months (around 02/22/2024), or if symptoms worsen or fail to improve, for Clinic Visit. | For: Clinic Visit Leah Dozier DO documented in this encounter Plan of Treatment Upcoming Encounters Date Type Department Care Team (Late st Contact Info) Description 04/21/2024 9:00 AM EDT Nurse Only Ancillary Department, [facility] [address] [place] [id number] [facility] [address] [place] [address] 04/27/2024 9:40 AM EDT Office Visit [facility] [address] [place] [address] Leah Dozier DO [address] [place] [address] Pending Results Name Type Priority Associated Diagnoses Date /Time VITAMIN B12 Lab Routine Gastroesophageal reflux disease, unspecified whether esophagitis present Encounter for long-term (current) use of medications 10/24/2023 9:36 AM EST MAGNESIUM Lab Routine Gastroesophageal reflux disease, unspecified whether esophagitis present Encounter for long-term (current) use of medications 10/24/2023 9:36 AM EST CBC WITH WBC DIFFERENTIAL Lab Routine Dyslipidemia, goal LDL below 70 Pulmonary hypertension (HCC) HTN, goal below 150/90 Gastroesophageal reflux disease, unspecified whether esophagitis present 10/24/2023 9:36 AM EST COMPREHENSIVE METABOLIC PANEL Lab Routine Dyslipidemia, goal LDL below 70 Pulmonary hypertension (HCC) HTN, goal below 150/90 Gastroesophageal reflux disease, unspecified whether esophagitis present 10/24/2023 9:36 AM EST TSH WITH FREE T4 IF INDICATED Lab Routine Dyslipidemia, goal LDL below 70 Pulmonary hypertension (HCC) HTN, goal below 150/90 10/24/2023 9:36 AM EST LIPID PANEL WITH DIRECT LDL IF TG IS HIGH Lab Routine Dyslipidemia, goal LDL below 70 Pulmonary hypertension (HCC) HTN, goal below 150/90 10/24/2023 9:36 AM EST ALBUMIN / CREATININE RATIO, URINE Lab Routine HTN, goal below 150/90 10/24/2023 9:38 AM EST Scheduled Orders Name Type Priority Associated Diagnoses Orde r Schedule VITAMIN B12 Lab Routine Gastroesophageal reflux disease, unspecified whether esophagitis present Encounter for long-term (current) use of medications Expected: 10/24/2023 (Approximate), Expires: 10/24/2024 MAGNESIUM Lab Routine Gastroesophageal reflux disease, unspecified whether esophagitis present Encounter for long-term (current) use of medications Expected: 10/24/2023 (Approximate), Expires: 10/24/2024 CBC WITH WBC DIFFERENTIAL Lab Routine Dyslipidemia, goal LDL below 70 Pulmonary hypertension (HCC) HTN, goal below 150/90 Gastroesophageal reflux disease, unspecified whether esophagitis present Expected: 10/24/2023 (Approximate), Expires: 10/24/2024 COMPREHENSIVE METABOLIC PANEL Lab Routine Dyslipidemia, goal LDL below 70 Pulmonary hypertension (HCC) HTN, goal below 150/90 Gastroesophageal reflux disease, unspecified whether esophagitis present Expected: 10/24/2023 (Approximate), Expires: 10/24/2024 TSH WITH FREE T4 IF INDICATED Lab Routine Dyslipidemia, goal LDL below 70 Pulmonary hypertension (HCC) HTN, goal below 150/90 Expected: 10/24/2023 (Approximate), Expires: 10/24/2024 LIPID PANEL WITH DIRECT LDL IF TG IS HIGH Lab Routine Dyslipidemia, goal LDL below 70 Pulmonary hypertension (HCC) HTN, goal below 150/90 Expected: 10/24/2023 (Approximate), Expires: 10/24/2024 ALBUMIN / CREATININE RATIO, URINE Lab Routine HTN, goal below 150/90 Expected: 10/24/2023 (Approximate), Expires: 10/23/2024 Health Maintenance Due Date Last Done Comments *SPIROMETRY ONCE FOR ASTHMA-ADULT 08/30/2022 DTaP,Tdap,and Td Vaccines (2 - Td or Tdap) 12/25/2022 12/25/2012, 10/07/1996 *BISPHONATE OR OTHER ACCEPTABLE MEDICATION NEEDED FOR OSTEOPOROSIS (REFER TO SMARTSET #1146) 01/17/2023 COVID-19 Vaccine ( season) 2023 01/09/2022, 07/05/2021, 12/20/2020, Additional history exists GFR 02/21/2024 02/20/2023, 07/08, 01/31/2022, Additional history exists Depression Screening 04/17/2024 04/17/2023 DXA Scan 03/27/2025 03/27/2023, 11/07, 07/19/2014, Additional history exists Albumin/Creatinine Ratio 07/27/2025 07/27/2022 VITAMIN D LEVEL ONCE IN A LIFETIME-USE SMARTSET# [id number] Completed 03/17/2008 Pneumococcal Vaccine: 65+ Years Completed [...] this encounter Medical Devices Implanted Type Area Rougher Machine Operator Device Identifier Shelf Expiration Date Model / Serial / Lot Lens Intraoc 20.5 - [id number] - [id number] Implanted:Qty: 1 on 12/24/2017 by Jeffrey Weber MD at OR [facility] Left: Eye [employer] 05/06/2022 [id number] / [id number] / [id number] Lens Intraoc 20.5 - [id number] - [id number] Implanted:Qty: 1 on 01/07/2018 by Jeffrey Weber MD at OR [facility] Right: Eye [employer] 07/06/2022 [id number] / [id number] / [id number] documented as of this encounter Visit Diagnoses Diagnosis HTN, goal below 150/90- Primary Dyslipidemia, goal LDL below 70 Other and unspecified hyperlipidemia Pulmonary hypertension (HCC) Other chronic pulmonary heart diseases TIMOTHY (generalized anxiety disorder) Generalized anxiety disorder Age-related osteoporosis without current pathological fracture Senile osteoporosis Gastroesophageal reflux disease, unspecified whether esophagitis present Encounter for long-term (current) use of medications Encounter for long-term (current) use of other medications documented in this encounter Advance Directives Latest [...] and were consensually agreed upon. Care Teams Lip Reading Teacher Relationship Specialty Start Date End Date Leah Dozier DO [address] [id number] PCP - General Family Medicine 12/26/22 documented as of this encounter
--- OUTSIDE RECORDS SUMMARY | 2024-02-26 22:52 | External Medical Summary ---
Author Name Unknown Address Unknown Organization K01:[facility] [place] [address] [place] [address] [address] Laboratory Report Ordering Provider Test Date Status ISIDRO ADKINS 10/24/2023 09:36:26 Final Observation Date Value Abnormality Reference (Units ) Status SYNC LEUKOCYTES IN BLOOD BY AUTOMATED COUNT 10/24/2023 09:36:26 10.86 Above high normal 4.00-10.80 (K/uL) Final Segs 10/24/2023 09:36:26 48.1 40.0-75.0 (%) Final Lymphs % 10/24/2023 09:36:26 40.3 18.0-42.0 (%) Final Monos 10/24/2023 09:36:26 8.9 1.0-11.0 (%) Final Eosinophils 10/24/2023 09:36:26 1.8 0.0-6.0 (%) Final Basos 10/24/2023 09:36:26 0.6 0.0-2.0 (%) Final Immature Granulocyte, Percent 10/24/2023 09:36:26 0.3 0.0-2.0 (%) Final Absolute Segs 10/24/2023 09:36:26 5.21 1.80-7.70 (K/uL) Final Lymphs, absolute 10/24/2023 09:36:26 4.38 1.00-4.80 (K/ul) Final Monos, Abs 10/24/2023 09:36:26 0.97 0.00-1.10 (K/uL) Final Eos, Abs 10/24/2023 09:36:26 0.20 0.00-0.70 (K/uL) Final Basos, Abs 10/24/2023 09:36:26 0.07 0.00-0.20 (K/uL) Final Immature Granulocytes, Number 10/24/2023 09:36:26 0.03 0.00-0.20 (K/uL) Final Performing Location [facility] [place] [address] [facility] [address]
--- OUTSIDE RECORDS SUMMARY | 2024-02-26 22:52 | External Medical Summary | Summary of Care ---
Author Name Unknown Organization [facility] Address [address] [place] [address] Phone [phone] Care Team Providers Care Director Diabetes Name Role Phone Leah Dozier DO Primary Care Provider [phone] Reason for Visit * Reason Comments Acute Pt being seen for eugenio maldonado and pain under her Rt armpit and down the arm, has had for 2 weeks now. Has therapy and makes it worse. Has some movement in fingers at night that is involuntary. Encounter Details Date Type Department Care Team (Late st Contact Info) Description 12/17/2023 11:20 AM EDT Office Visit Family Practice [facility] [address] [place] [address] Leah Dozier DO [address] [place] [address] Breast pain, right*; Chronic right shoulder pain; Axillary pain, right Allergies Active Allergy Reactions Criticality [...] Sign Reading Time Taken Comments Blood Pressure 130/58 12/17/2023 11:00 AM EDT Pulse 84 12/17/2023 11:00 AM EDT Temperature 36.8 C (98.2 F) 12/17/2023 11:00 AM E DT Respiratory Rate 16 12/17/2023 11:00 AM EDT Oxygen Saturation - - Inhaled Oxygen Concentration - - Weight 57.6 kg (127 lb) 12/17/2023 11:00 AM EDT Height - - Body Mass Index 25.65 10/24/2023 8:55 AM EST documented in this [...] this encounter Progress Notes * Leah Dozier, - 12/17/2023 11:02 AM EDT Subjective: Jade Yanes is a 83 year old female. Chief Complaint Patient presents with Acute Pt being seen for swelling and pain under her Rt armpit and down the arm, has had for 2 weeks now. Has therapy and makes it worse. Has some movement in fingers at night that is involuntary. There are no exam notes on file for this visit. HPI: This is a 83 year old female with PMHx as below presents with acute illness Doing PT for R shoulder ongoing pain did see ortho Lump axillary region and breast pain No recent illness VSS No trauma Health Maintenance Due Topic Date Due *BISPHONATE OR OTHER ACCEPTABLE MEDICATION NEEDED FOR OSTEOPOROSIS (REFER TO SMARTSET #1146) Never done COVID-19 Vaccine ( season) 2023 Patient Active Problem List Diagnosis Code ADVANCE DIRECTIVE INFORMATION LBBB (left bundle branch block) I44.7 Gastroesophageal reflux disease without esophagitis K21.9 HTN, goal below 150/90 I10 Age-related osteoporosis without current pathological fracture M81.0 Dyslipidemia, goal LDL below 70 E78.5 Pulmonary hypertension (HCC) I27.20 Insomnia G47.00 TIMOTHY (generalized anxiety disorder) F41.1 Current Outpatient Medications Medication Sig Dispense Refill Diclofenac Sodium 1 % External Gel (Voltaren) Apply topically to affected area 2 times a day. Applyto right shoulder (Patient not taking: Reported on 10/24/2023) 100 g 0 Lisinopril-hydroCHLOROthiazide 20-12.5 MG Oral Tablet take 1/2 tablet by mouth every morning 45 Tablet 2 Omeprazole 20 MG Oral Capsule Delayed Release (PriLOSEC) TAKE 1 CAPSULE BY MOUTH EVERY MORNING 90 Capsule 1 Vitamin B-12 1000 MCG Oral Tablet (Cyanocobalamin) Take 1 Tablet by mouth in the morning. 100 Tablet 3 Atorvastatin Calcium 10 MG Oral Tablet (Lipitor) Take one pill at bedtime 4 times a week. For CHOLESTEROL 60 Tablet 2 buPROPion HCl ER (XL) 150 MG Oral Tablet Extended Release 24 Hour (Wellbutrin XL) Take 1 Tablet by mouth in the morning. 30 Tablet 5 No current facility-administered medications for this visit. [...] performed by Arsh Aguirre MD at ENDOSCOPY [facility] EGD, FLEXIBLE, DIAGNOSTIC 10/06/2013 ESOPHAGOGASTRODUODENOSCOPY (EGD), FLEXIBLE, TRANSORAL, DIAGNOSTIC performed by Arsh Aguirre MD at ENDOSCOPY [facility] EGD, FLEXIBLE, DIAGNOSTIC 07/22/2014 ESOPHAGOGASTRODUODENOSCOPY (EGD), FLEXIBLE, TRANSORAL, DIAGNOSTIC performed by Arsh Aguirre MD at ENDOSCOPY [facility] INFORMATION Left arthroscopic surgery - with hardware. LAPAROSCOPY; CHOLECYSTECTOMY N/A 12/04/2016 12/04/2016 LAPAROSCOPIC CHOLECYSTECTOMY performed by Rosalina Murphy MD at OR [facility] REMOVE CATARACT, INSERT LENS PROSTH Left 12/24/2017 left EXTRACAPSULAR CATARACT REMOVAL WITH INTRAOCULAR LENS performed by Jeffrey Weber MD at OR [facility] REMOVE CATARACT, INSERT LENS PROSTH Right 01/07/2018 right EXTRACAPSULAR CATARACT REMOVAL WITH INTRAOCULAR LENS performed by Jeffrey Weber MD at OR [facility] Review of patient's allergies indicates: Allergen Reactions [...] negative. Wt Readings from Last 3 Encounters: 12/17/23 57.6 kg (127 lb) 10/24/23 58.5 kg (129 lb) 07/24/23 60.3 kg (133 lb) Results for orders placed or performed in visit on 10/24/23 VITAMIN B12 Result Value Ref Range Vitamin B12 322 232 - 1,245 pg/mL MAGNESIUM Result Value Ref Range Magnesium 2.2 1.5 - 2.6 mg/dL COMPREHENSIVE METABOLIC PANEL Result Value Ref Range BUN 11 6 - 20 mg/dL Creatinine 0.7 0.5 - 1.0 mg/dL Estimated Glomerular Filtration Rate 84 >=60 mL/min Sodium 138 135 - 146 mmol/L Potassium 4.6 3.5 - 5.1 mmol/L Chloride 100 98 - 107 mmol/L CO2 24 22 - 32 mmol/L Anion Gap 14 7 - 15 mmol/L Glucose 97 70 - 120 mg/dL Albumin 4.3 3.8 - 5.0 g/dL AST 18 10 - 35 U/L Alkaline Phosphatase 104 35 - 130 U/L Bilirubin, Total 0.2 <=1.2 mg/dL Calcium 9.8 8.4 - 10.2 mg/dL Protein 7.4 6.0 - 8.3 g/dL ALT 17 10 - 35 U/L TSH WITH FREE T4 IF INDICATED Result Value Ref Range TSH 2.35 0.27 - 4.20 uIU/mL LIPID PANEL WITH DIRECT LDL IF TG IS HIGH Result Value Ref Range Triglycerides 250 (H) <=174 mg/dL Cholesterol 241 (H) <200 mg/dL HDL Cholesterol 39 (L) >49 mg/dL Non-HDL Cholesterol 202 (H) <=159 mg/dL LDL Cholesterol 152 (H) <=129 mg/dL MYCODE SST1 Result Value Ref Range MyCode Specimen Freezing of extracted DNA, whole blood and/or serum. MYCODE SST2 Result Value Ref Range MyCode Specimen Freezing of extracted DNA, whole blood and/or serum. CBC Result Value Ref Range WBC 10.86 (H) 4.00 - 10.80 K/uL RBC 4.66 3.85 - 5.15 M/uL HGB 13.0 12.0 - 15.3 g/dL HCT 41.9 36.0 - 45.2 % MCV 89.9 81.5 - 97.5 fL MCH 27.9 27.0 - 34.0 pg MCHC 31.0 32.0 - 36.0 g/dL RDW 14.0 11.5 - 15.5 % PLT 301 140 - 400 K/uL MPV 11.9 6.6 - 11.1 fL nRBCs 0 <=0 /100 WBCs DIFFERENTIAL, AUTOMATED Result Value Ref Range WBC 10.86 (H) 4.00 - 10.80 K/uL Neutrophils % 48.1 40.0 - 75.0 % Lymphocytes % 40.3 18.0 - 42.0 % Monocytes % 8.9 1.0 - 11.0 % Eosinophils % 1.8 0.0 - 6.0 % Basophils % 0.6 0.0 - 2.0 % Immature Granulocytes % 0.3 0.0 - 2.0 % Absolute Neutrophils 5.21 1.80 - 7.70 K/uL Absolute Lymphocytes 4.38 1.00 - 4.80 K/ul Absolute Monocytes 0.97 0.00 - 1.10 K/uL Absolute Eosinophils 0.20 0.00 - 0.70 K/uL Absolute Basophils 0.07 0.00 - 0.20 K/uL Absolute Immature Granulocytes 0.03 0.00 - 0.20 K/uL ALBUMIN / CREATININE RATIO, URINE Result Value Ref Range Albumin, Random Urine <1.20 mg/dL Creatinine, Random Urine 52 mg/dL Albumin / Creatinine Ratio, Urine <23 <30 mg/g Creat OBJECTIVE: Physical Exam: BP 130/58 | Pulse 84 | Temp 36.8 C (98.2 F) (Tympanic) | Resp 16 | Wt 57.6 kg (127 lb) | BMI 25.65 kg/m | BSA 1.55 m General: alert, healthy, and no distress Breasts: positive findings: pain with palpation, axillary lump tender noted as well Chronic right shoulder pain - XR SHOULDER, 2 OR MORE VIEWS Breast pain, right - US BREAST AXILLA RIGHT; Future; Expected date: 12/17/2023 Axillary pain, right - US BREAST AXILLA RIGHT; Future; Expected date: 12/17/2023 Follow Up: Return if symptoms worsen or fail to improve. Leah Dozier DO documented in this encounter Plan of Treatment Upcoming Encounters Date Type Department Care Team (Late st Contact Info) Description 12/17/2023 11:40 AM EDT Imaging Radiology [facility] 1st [facility], [address] [place] [address] Arrived 04/21/2024 9:00 AM EDT Nurse Only Ancillary Department, [place] [address] [facility] [place] [address] [place], Nurse Annual Wellness [address] [place] [address] 04/27/2024 9:40 AM EDT Office Visit Family [facility] [address] [place] [address] Leah Dozier DO [address] [place] [address] Pending Results Name Type Priority Associated Diagnoses Date /Time XR SHOULDER, 2 OR MORE VIEWS Medical Imaging Routine Chronic right shoulder pain 12/17/2023 11:21 AM EDT Scheduled Orders Name Type Priority Associated Diagnoses Orde r Schedule US BREAST AXILLA RIGHT Medical Imaging Routine Breast pain, right Axillary pain, right Expected: 12/17/2023 (Approximate), Expires: 01/16/2025 Health Maintenance Due Date Last Done Comments [...] D LEVEL ONCE IN A LIFETIME-USE SMARTSET# 69629 Completed 03/17/2008 Pneumococcal Vaccine: 65+ Years Completed [...] this encounter Medical Devices Implanted Type Area Pool Installer Device Identifier Shelf Expiration Date Model / Serial / Lot Lens Intraoc 20.5 - [id number] - [id number] Implanted:Qty: 1 on 12/24/2017 by Jeffrey Weber MD at OR [facility] Left: Eye [employer]USCH [employer] LOMB 05/06/2022 [id number] / [id number] / [id number] Lens Intraoc 20.5 - [id number] - [id number] Implanted:Qty: 1 on 01/07/2018 by Jeffrey Weber MD at OR [facility] Right: Eye BAUSCH & LOMB 07/06/2022 [id number] / [id number] / [id number] documented as of this encounter Visit Diagnoses Diagnosis Breast pain, right- Primary Mastodynia Chronic right shoulder pain Pain in joint, shoulder region Axillary pain, right documented in this encounter Advance Directives Latest [...] and were consensually agreed upon. Care Teams Director Diabetes Relationship Specialty Start Date End Date Leah Dozier DO [address] [place] [id number] PCP - General Family Medicine 12/26/22 documented as of this encounter"
--- OUTSIDE RECORDS SUMMARY | 2024-02-26 22:52 | External Medical Summary | Summary of Care ---
Author Name Unknown Organization [facility] Address [address] [place] [address] Phone [phone] Care Team Providers Care Carrot Tier Name Role Phone Leah Suarez DO Primary Care Provider [phone] Reason for Visit * Reason Comments Outpatient Testing Encounter Details Date Type Department Care Team (Late st Contact Info) Description 10/24/2023 9:40 AM EST Laboratory [facility] [address] [facility] [address] [facility] [address] [facility] [place] [address] GCI Com Other*[id number]; Gastroesophageal reflux disease, unspecified whether esophagitis present; Encounter for long-term (current) use of medications; Dyslipidemia, goal LDL below 70; Pulmonary hypertension (HCC); HTN, goal below 150/90 Allergies Active Allergy Reactions Criticality Noted Date [...] 12/09/2019 Overview: Per Lipid Taxonomy. Mixed dyslipidemia 12/17/200 9 Overview: Per Lipid Taxonomy. Menopausal and postmenopausal disorder 06/28/2014 documented as of this encounter (statuses as of 10/24/2023) Immunizations Name Administration Dates Next Due COVID-19 mRNA, LNP-s, No Pre serve, 2-Dose Series (Prixing) 07/05/2021,12/20/2020,11/22/2020 COVID-19, LNP-s, No Preserve , Temo-sucrose, [...] 9:00 AM EDT Nurse Only Ancillary Department, [place] [address] [place] [address] [place], Nurse Annual Wellness [address] [place] [address] 04/27/2024 9:40 AM EDT Office Visit Family Practice [facility] [address] [place] [address] Leah Suarez, [address] [place] [address] Pending Results Name Type Priority Associated Diagnoses Date /Time MYCODE SUBSEQUENT ADULT Lab Routine MyCode Research Other*[id number] 10/24/2023 9:36 AM EST VITAMIN B12 Lab Routine Gastroesophageal reflux disease, [...] goal below 150/90 10/24/2023 9:36 AM EST MYCODE SST1 Lab Routine MyCode Research Other*[id number] 10/24/2023 9:36 AM EST MYCODE SST2 Lab Routine MyCode Research Other*[id number] 10/24/2023 9:36 AM EST CBC Lab Routine Dyslipidemia, goal LDL below 70 Pulmonary hypertension (HCC) HTN, goal below 150/90 Gastroesophageal reflux disease, unspecified whether esophagitis present 10/24/2023 9:36 AM EST DIFFERENTIAL, AUTOMATED Lab Routine Dyslipidemia, goal LDL below 70 Pulmonary hypertension (HCC) HTN, goal below 150/90 Gastroesophageal reflux disease, unspecified whether esophagitis present 10/24/2023 9:36 AM EST ALBUMIN / CREATININE RATIO, URINE Lab Routine HTN, goal below 150/90 10/24/2023 9:38 AM EST Health Maintenance Due Date Last Done Comments *SPIROMETRY ONCE FOR ASTHMA-ADULT 08/30/2022 *BISPHONATE OR OTHER ACCEPTABLE MEDICATION NEEDED FOR OSTEOPOROSIS (REFER TO SMARTSET #1146) 01/17/2023 COVID-19 Vaccine ( season) 2023 01/09/2022, 07/05/2021, 12/20/2020, Additional history exists GFR 02/21/2024 02/20/2023, 07/08, 01/31/2022, Additional history exists Depression Screening 04/17/2024 04/17/2023 DXA Scan 03/27/2025 03/27/2023, 11/07, 07/19/2014, Additional history exists Albumin/Creatinine Ratio 07/27/2025 07/27/2022 DTaP,Tdap,and Td Vaccines (3 - Td or Tdap) 10/24/2033 10/24/2023, 12/25/2012, 10/07/1996 VITAMIN D LEVEL ONCE IN A LIFETIME-USE SMARTSET# 62276 Completed 03/17/2008 Pneumococcal Vaccine: 65+ Years Completed [...] this encounter Medical Devices Implanted Type Area Culinary Chef Device Identifier Shelf Expiration Date Model / Serial / Lot Lens Intraoc 20.5 - [id number] - [id number] Implanted:Qty: 1 on 12/24/2017 by Jeffrey Weber MD at OR [facility] Left: Eye BAUSCH [employer] LOMB 05/06/2022 [id number] / [id number] / [id number] Lens Intraoc 20.5 - [id number] - [id number] Implanted:Qty: 1 on 01/07/2018 by Jeffrey Weber MD at OR [facility] Right: Eye BAUSCH [employer] LOMB 07/06/2022 [id number] / [id number] / [id number] documented as of this encounter Visit Diagnoses Diagnosis MyCode Research Other*[id number] Gastroesophageal reflux disease, unspecified whether esophagitis present Encounter for long-term (current) use of medications Encounter for long-term (current) use of other medications Dyslipidemia, goal LDL below 70 Other and unspecified hyperlipidemia Pulmonary hypertension (HCC) Other chronic pulmonary heart diseases HTN, goal below 150/90 documented in this encounter Advance Directives Latest [...] and were consensually agreed upon. Care Teams Carrot Tier Relationship Specialty Start Date End Date Leah Suarez DO [address] [place] [id number] PCP - General Family Medicine 12/26/22 documented as of this encounter
--- OUTSIDE RECORDS SUMMARY | 2024-02-26 22:52 | External Medical Summary ---
Author Name Unknown Address Unknown Organization K01:[facility] - [address] [place] [address] Laboratory Report Ordering Provider Test Date Status ISIDRO ADKINS 10/24/2023 09:36:26 Final Observation Date Value Abnormality Reference (Units ) Status Magnesium 10/24/2023 09:36:26 2.2 1.5-2.6 (m g/dL) Final Performing Location [facility] - [address] [place] [address]
--- OUTSIDE RECORDS SUMMARY | 2024-02-26 22:52 | External Medical Summary ---
Author Name Unknown Address Unknown Organization K01:[facility] - [address] [facility] [place] [address] Laboratory Report Ordering Provider Test Date Status ISIDRO ADKINS 10/24/2023 09:36:26 Final Observation Date Value Abnormality Reference (Units ) Status Triglyceride 10/24/2023 09:36:26 250 Above high normal <=174 (mg/dL) Final Triglyceride Reference Range s (mg/dL):
<150 Acceptable
150-174 Borderline high
175-499 High
>=500 Very high Cholesterol 10/24/2023 09:36:26 241 Above high normal <200 (mg/dL) Final Total Cholesterol Reference Ranges (mg/dL):
<200 Desirable
200-239 Borderline high
>=240 High HDL 10/24/2023 09:36:26 39 Below low normal >49 (mg/dL) Final HDL Cholesterol Reference Ra nges (mg/dL):
>=60 High (Desirable)
<50 Low (Undesirable) For Females
<40 Low (Undesirable) For Males NON-HDL CHOLESTEROL 10/24/2023 09:36:26 202 Above high normal <=159 (mg/dL) Final Non-HDL Cholesterol Referenc e Range (mg/dL):
<100 Target level for high risk ASCVD patient
<130 Optimal for general population
130-159 Near optimal for general population
160-189 Borderline High
190-219 High
>=220 Very High LDL, (calculated) 10/24/2023 09:36:26 152 Above high n ormal <=129 (mg/dL) Final LDL Cholesterol Reference Ra nges (mg/dL):
<70 Target level for high risk ASCVD patient
<100 Optimal for general population
100-129 Near optimal for general population
130-159 Borderline high
160-189 High
>=190 Very high Performing Location LABORATORY [facility] - [address] [facility] [address]
--- OUTSIDE RECORDS SUMMARY | 2024-02-26 22:52 | External Medical Summary | Summary of Care ---
Author Name Unknown Organization [facility] Address [address] [place] [address] Phone [phone] Care Team Providers Care Rail Gang Supervisor Name Role Phone Leah Suarez DO Primary Care Provider [phone] Reason for Visit * Reason Onset Date Comments Test Results 10/27/2023 Encounter Details Date Type Department Care Team (Late st Contact Info) Description 10/27/2023 Telephone Family Practice [facility] [address] [facility] [place] [address] Leah Suarez DO [address] [place] [address] Test Results Allergies Active Allergy Reactions Criticality Noted Date Comments Prednisone Tachycardia 04/17/2016 Statins Muscle pain 12/25/2012 documented as of this encounter (statuses as of 10/29/2023) Medications Medication Sig Dispensed Refills Start Date [...] as of this encounter (statuses as of 10/29/2023) Active Problems Problem Noted Date Diagnosed Date [...] as of this encounter (statuses as of 10/29/2023) Resolved Problems Problem Noted Date Diagnosed Date [...] as of this encounter (statuses as of 10/29/2023) Immunizations Name Administration Dates Next Due COVID-19 [...] encounter Miscellaneous Notes * Telephone Encounter - Leah Suarez DO - 10/29/2023 11:28 AM EST Noted * Telephone Encounter - Allison Velarde LPN - 10/28/2023 9:27 AM EST Called and spoke with pt. Pt state that she has only been taking her statin maybe 1-2 times a week.Pt did cigar packer and picker her new script and saw that it says to take 4 times week. Recommended that she take the med 4 times a week as ordered. Pt will have labs rechecked in 6 months as ordered. * Telephone Encounter - Leah Suarez DO - 10/27/2023 3:40 PM EST Labs reviewed Cholesterol - remains up. How often taking statin during the week Very mild elevation in white blood cell count. Will recheck 6 mo Thank you documented in this encounter Plan of Treatment Upcoming Encounters Date Type Department Care Team (Late st Contact Info) Description 04/21/2024 9:00 AM EDT Nurse Only Ancillary Department, [place] [address] [place] [address] [place], Nurse Annual Wellness [address] [facility] [place] [address] 04/27/2024 9:40 AM EDT Office Visit Family Practice [facility] [address] [place] [address] Leah Suarez DO [address] [place] [address] Health Maintenance Due Date Last Done Comments *BISPHONATE OR OTHER ACCEPTABLE MEDICATION NEEDED FOR OSTEOPOROSIS (REFER TO SMARTSET #1146) 01/17/2023 COVID-19 Vaccine (2022- season) 2023 01/09/2022, 07/05/2021, 12/20/2020, Additional history exists Depression Screening 04/17/2024 04/17/2023 GFR 10/24/2024 10/24/2023, 02/04, 07/27/2022, Additional history exists DXA Scan 03/27/2025 03/27/2023, 11/07, 07/19/2014, Additional history exists Albumin/Creatinine Ratio 10/24/2026 10/24/2023, 07/08 DTaP,Tdap,and Td Vaccines (3 - Td or Tdap) 10/24/2033 10/24/2023, 12/25/2012, 10/07/1996 VITAMIN D LEVEL ONCE IN A LIFETIME-USE SMARTSET# 41219 Completed 03/17/2008 Pneumococcal Vaccine: 65+ Years Completed [...] this encounter Medical Devices Implanted Type Area Global Category Manager Device Identifier Shelf Expiration Date Model / Serial / Lot Lens Intraoc 20.5 - [id number] - [id number] Implanted:Qty: 1 on 12/24/2017 by Jeffrey Weber MD at OR [facility] Left: Eye BAUSCH [employer] LOMB 05/06/2022 [id number] / [id number] / [id number] Lens Intraoc 20.5 - [id number] - [id number] Implanted:Qty: 1 on 01/07/2018 by Jeffrey Weber MD at OR [facility] Right: Eye BAUSCH & LOMB 07/06/2022 [id number] / [id number] / [id number] documented as of this encounter Advance Directives [...] and were consensually agreed upon. Care Teams Rail Gang Supervisor Relationship Specialty Start Date End Date Leah Suarez DO [address] [place] [address] PCP - General Family Medicine 12/26/22 documented as of this encounter
--- OUTSIDE RECORDS SUMMARY | 2024-02-26 22:52 | External Medical Summary | Summary of Care ---
Author Name Unknown Organization [facility] Address [address] [place] [address] Phone [phone] Care Team Providers Care Ore Miner Name Role Phone eLah Dozier DO Primary Care Provider [phone] Reason for Referral * Evaluate & Treat - Unlimited Visits (Within 30 days (routine)) - Authorized Specialty Diagnoses / Procedures Referred By Cata barragan Referred To Contact Physical Therapy / Physical Medicine And Rehab Diagnoses Pain in joint of right shoulder Leah Dozier DO [address] [place] [address] Referral ID Status Reason Start Date Expiration Date Visits Requested Visits Authorized [id number] Authorized Specialty Services Required 10/17/[phone] Question Answer Referral Priority Within 30 days (routine) Where should this appointment be scheduled? External Comments Right shoulder pain/rotator cuff. Reason for Visit * Reason Onset Date Comments Referral 10/17/2023 Encounter Details Date Type Department Care Team (Late st Contact Info) Description 10/17/2023 Telephone Access Center, [facility] [address] [facility] *DO NOT REMOVE THIS DEPARTMENT* [place] [id number] Services, Scheduling [address] [place] [address] Referral Allergies Active Allergy Reactions Criticality Noted Date Comments Prednisone Tachycardia 04/17/2016 Statins Muscle pain 12/25/2012 documented as of this encounter (statuses as of 10/17/2023) Medications Medication Sig Dispensed Refills Start Date End Date Status Atorvastatin Calcium 10 MG Oral Tablet (Lipitor)Indication s:Dyslipidemia, goal LDL below 70 Take one pill at bedtime 4 times a week. For CHOLESTEROL 60 Tablet 1 02/21/2023 Active Additional Information Patient taking differently: Take one pill at bedtime 1 times a week. For CHOLESTEROL, Reported on 07/24/2023 hydrOXYzine HCl 25 MG Oral TabletIndications:I nsomnia, unspecified type Take 0.5 Tablets by mouth at bedtime as needed (insomnia). 30 Tablet 1 03/06/2023 Active Diclofenac Sodium 1 % External Gel (Voltaren)Indicatio ns:Acute pain of right shoulder Apply topically to affected area 2 times a day. Apply to right shoulder 100 g 0 05/13/2023 Active Lisinopril-hydroCHL OROthiazide 20-12.5 MG Oral Tablet take 1/2 tablet by mouth every morning 45 Tablet 2 07/20/2023 Active Sertraline HCl 50 MG Oral Tablet (Zoloft)Indications :TIMOTHY (generalized anxiety disorder) Take 1 Tablet by mouth in the morning. 90 Tablet 3 08/27/2023 Active Omeprazole 20 MG Oral Capsule Delayed Release (PriLOSEC)Indicatio ns:Abdominal pain, epigastric,Gastroes ophageal reflux disease without esophagitis TAKE 1 CAPSULE BY MOUTH EVERY MORNING 90 Capsule 1 10/10/2023 Active Vitamin B-12 1000 MCG Oral Tablet (Cyanocobalamin) Take 1 Tablet by mouth in the morning. 100 Tablet 3 10/10/2023 Active documented as of this encounter (statuses as of 10/17/2023) Active Problems Problem Noted Date Diagnosed Date Pulmonary hypertension 02/20/2023 Insomnia 02/20/2023 Age-related osteoporosis wit hout current pathological fracture 01/14/2023 Dyslipidemia, goal LDL below 70 01/14/2023 Mild intermittent asthma, uncomplicated 07/27/20 HTN, goal below 150/90 05/02/2017 Gastroesophageal reflux disease without esophagi tis 06/28/2014 LBBB (left bundle branch block) 04/20/2013 ADVANCE DIRECTIVE INFORMATION 09/25/2006 Overview: No, Advance Directive brochure given to patient at prior appointment. documented as of this encounter (statuses as of 10/17/2023) Resolved Problems Problem Noted Date Diagnosed Date Resolved Date Generalized anxiety disorder 07/27/2022 07/27/2022 Gastritis and gastroduodenitis 10/15/2013 06/28/2014 Overview: EGD 10/06/13, diffusely erythematous gastric mucosa, done because of chest pain Pre-operative cardiovascular examination 04/20/2013 06/28/2014 Abnormal EKG 04/20/2013 06/28/2014 Dyslipidemia, goal LDL below 130 09/22/2009 12/09/2019 Overview: Per Lipid Taxonomy. Mixed dyslipidemia Overview: Per Lipid Taxonomy. Menopausal and postmenopausal disorder 06/28/2014 documented as of this encounter (statuses as of 10/17/2023) Immunizations Name Administration Dates Next Due COVID-19 mRNA, LNP-s, No Pre serve, 2-Dose Series ([employer]) 07/05/2021,12/20/2020,11/22/2020 COVID-19, LNP-s, No Preserve , Temo-sucrose, [...] Telephone Encounter - Corina Garibay LPN - 10/17/2023 11:55 AM EST Pt coming to appt next week, wants a print out of ref at this appt to take with her. She is unsure where she wants to go for PT. * Telephone Encounter - Leah Dozier DO - 10/17/2023 10:16 AM EST signed * Telephone Encounter - Corina Garibay LPN - 10/17/2023 9:52 AM EST Called pt, clarified that it was her right shoulder again. Ref pending. Pt would like to pickling machine operator ref on Saturday when here for appt with Erick. Not sure what location she is going to for PT yet. * Telephone Encounter - Charlette Taylor OSA - 10/17/2023 9:35 AM EST Has the patient been seen for this problem? (Y/N)?: Yes If No, an appt needs to be scheduled before a referral will be placed (exception: proceed with referral request if referral request is for a yearly routine appointment with speciality) Patient Name: Jade Yanes Patient Primary care provider: Leah Dozier, DO Does this need to be an insurance referral (Y/N)?: n/a If Yes, does the insurance referral need to be placed into the [employer] system? Name of preferred specialist: n/a Type of specialist: Physical Therapy Location of specialist: Not sure, pt would like referral sent to her Specialist's Phone #: n/a Specialist's Fax #: n/a Reason for visit: Rotator Cuff Date of visit: n/a Please provide pt with return call once order has been placed within the [place] Mail. Address Verified. documented in this encounter Plan of Treatment Upcoming Encounters Date Type Department Care Team (Late st Contact Info) Description 10/24/2023 9:00 AM EST [facility] [address] [facility] [place] [address] Leah Dozier DO [address] [place] [address] 04/21/2024 9:00 AM EDT Nurse Only Ancillary Department, [place] [address] [place] [address] [place] Nurse [facility] [address] [place] [address] Scheduled Referrals Name Type Priority Associated Diagnoses Orde r Schedule PHYSICAL THERAPY REFERRAL OP Referral Within 30 days (routine) Pain in joint of right shoulder Ordered: 10/17/2023 Health Maintenance Due Date Last Done Comments [...] D LEVEL ONCE IN A LIFETIME-USE SMARTSET# 63823 Completed 03/17/2008 Pneumococcal Vaccine: 65+ Years Completed [...] this encounter Medical Devices Implanted Type Area Services Delivery Driver Device Identifier Shelf Expiration Date Model / Serial / Lot Lens Intraoc 20.5 - [id number] - [id number] Implanted:Qty: 1 on 12/24/2017 by Jeffrey Weber MD at [facility] Left: Eye [employer]OMB 05/06/2022 [id number] / [id number] / [id number] Lens Intraoc 20.5 - [id number] - [id number] Implanted:Qty: 1 on 01/07/2018 by Jeffrey Weber MD at [place] [facility] Right: Eye BAUSCH & LOMB 07/06/2022 [id number] / [id number] / [id number] documented as of this encounter Visit Diagnoses Diagnosis Pain in joint of right shoulder- Primary Pain in joint, shoulder region documented in this encounter Advance Directives Latest [...] and were consensually agreed upon. Care Teams Ore Miner Relationship Specialty Start Date End Date Leah Dozier DO [address] [place] [address] PCP - General Family Medicine 12/26/22 documented as of this encounter
--- OUTSIDE RECORDS SUMMARY | 2024-02-26 22:53 | External Medical Summary | Summary of Care ---
Author Name Unknown Organization [facility] Address [address] [place] [address] Phone [phone] Care Team Providers Care Film Replacement Orderer Name Role Phone Jed Felix DO Primary Care Provider [phone] Reason for Visit * Reason Comments eRx-Medication Refill Encounter Details Date Type Department Care Team (Late st Contact Info) Description 10/08/2023 Refill [place] [address] [place] [address] Ale Multani DO [address] [place] [address] Abdominal pain, epigastric; Gastroesophageal reflux disease without esophagitis Allergies Active Allergy Reactions Criticality Noted Date Comments Prednisone Tachycardia 04/17/2016 Statins Muscle pain 12/25/2012 documented as of this encounter (statuses as of 10/10/2023) Medications Medication Sig Dispensed Refills Start Date End Date Status Atorvastatin Calcium 10 MG Oral Tablet (Lipitor)Indicat ions:Dyslipidemi a, goal LDL below 70 Take one pill at bedtime 4 times a week. For CHOLESTEROL 60 Tablet 1 02/21/2023 Active Additional Information Patient taking differently: Take one pill at bedtime 1 times a week. For CHOLESTEROL, Reported on 07/24/2023 hydrOXYzine HCl 25 MG Oral TabletIndication s:Insomnia, unspecified type Take 0.5 Tablets by mouth at bedtime as needed (insomnia). 30 Tablet 1 03/06/2023 Active Diclofenac Sodium 1 % External Gel (Voltaren)Indica tions:Acute pain of right shoulder Apply topically to affected area 2 times a day. Apply to right shoulder 100 g 0 05/13/2023 Active Lisinopril-hydro CHLOROthiazide 20-12.5 MG Oral Tablet take 1/2 tablet by mouth every morning 45 Tablet 2 07/20/2023 Active Sertraline HCl 50 MG Oral Tablet (Zoloft)Indicati [...] the morning. 100 Tablet 3 10/10/2023 Active Omeprazole 20 MG Oral Capsule Delayed Release (PriLOSEC)Indica tions:Abdominal pain, epigastric,Gastr oesophageal reflux disease without esophagitis Take by mouth 1 Capsule in the morning. 90 Capsule 2 07/27/2022 Discontinued documented as of this encounter (statuses as of 10/10/2023) Active Problems Problem Noted Date Diagnosed Date [...] as of this encounter (statuses as of 10/10/2023) Resolved Problems Problem Noted Date Diagnosed Date [...] as of this encounter (statuses as of 10/10/2023) Immunizations Name Administration Dates Next Due COVID-19 mRNA, LNP-s, No Pre serve, 2-Dose Series ([employer]) 07/05/2021,12/20/2020,11/22/2020 COVID-19, LNP-s, No Preserve , Temo-sucrose, [...] encounter Miscellaneous Notes * Telephone Encounter - Jed Felix DO - 10/10/2023 1:44 PM ESTSigned Prescriptions: Disp Refills Omeprazole 20 MG Oral Capsule Delayed Rele*90 Cap*1 Sig: TAKE 1 CAPSULE BY MOUTH EVERY MORNING Authorizing Provider: JED [place] Ordering User: AMIRAH CADENA Vitamin B-12 1000 MCG Oral Tablet (Cyanoco*100 Ta*3 Sig: Take 1 Tablet by mouth in the morning. Authorizing Provider: JED [place] * Telephone Encounter - Amirah Cadena [facility] - 10/10/2023 8:42 AM EST Pending Prescriptions: Disp Refills Vitamin B-12 1000 MCG Oral Tablet (Cyanoco*100 Ta*3 Sig: Take 1 Tablet by mouth in the morning. Signed Prescriptions: Disp Refills Omeprazole 20 MG Oral Capsule Delayed Rele*90 Cap*1 Sig: TAKE 1 CAPSULE BY MOUTH EVERY MORNING Authorizing Provider: JED [place] Ordering User: AMIRAH CADENA ----- * Telephone Encounter - Amirah Cadena [facility] - 10/10/2023 8:38 AM EST [facility]ation [facility] Date Value Ref Range Status 02/20/2023 188 (L) 232 - 1,245 pg/mL Final 04/10/2019 326 232 - 1,245 pg/mL Final Patient's vitamin B12 level came back low. This could be associated with long- term PPI use. I recommend starting this patient on a B12 supplement. RX is pended for vitamin b 12 (CYANOCOBALAMIN) 1000 MCG TABS 1 tablet daily. I also ordered repeat B12 lab for patient to recheck in 3 months. Please approve pended RX if appropriate. Route back to me if approved so I can notify patient to advise of new supplement. Thanks, Amirah Cadena, PharmD Clinical Pharmacist [facility] Pharmacy Services(formerly telepharmacy) [phone] 10/10/2023, 8:40 AM documented in this encounter Plan of Treatment Upcoming Encounters Date Type Department Care Team (Late st Contact Info) Description 10/24/2023 9:00 AM EST Office Visit [facility] [place] [address] [place] [address] Jed Felix, [address] [place] [address] 04/21/2024 9:00 AM EDT Nurse Only Ancillary Department, [place] [address] [place] [address] [place], Nurse [facility] [address] [place] [address] Scheduled Orders Name Type Priority Associated Diagnoses Orde r Schedule VITAMIN B12 Lab Routine Gastroesophageal reflux disease without esophagitis Expected: 01/09/2024 (Approximate), Expires: 10/10/2024 Health Maintenance Due Date Last Done Comments [...] D LEVEL ONCE IN A LIFETIME-USE SMARTSET# [id number] Completed 03/17/2008 Pneumococcal Vaccine: 65+ Years Completed [...] this encounter Medical Devices Implanted Type Area Job Coaching Device Identifier Shelf Expiration Date Model / Serial / Lot Lens Intraoc 20.5 - [id number] - [id number] Implanted:Qty: 1 on 12/24/2017 by Jeffrey Weber MD at OR [facility] Left: Eye [employer]OMB 05/06/2022 [id number] / [id number] / [id number] Lens Intraoc 20.5 - [id number] - [id number] Implanted:Qty: 1 on 01/07/2018 by Jeffrey Weber MD at OR [facility] Right: Eye BA[employer]CH [employer] LOMB 07/06/2022 [id number] / [id number] / [id number] documented as of this encounter Visit Diagnoses Diagnosis Abdominal pain, epigastric Gastroesophageal reflux disease without esophagitis Esophageal reflux documented in this encounter Advance Directives Latest [...] and were consensually agreed upon. Care Teams Film Replacement Orderer Relationship Specialty Start Date End Date Jed Felix DO [address] [place] [address] PCP - General Family Medicine 12/26/22 documented as of this encounter
--- OUTSIDE RECORDS SUMMARY | 2024-02-26 22:53 | External Medical Summary | Summary of Care ---
Author Name Unknown Organization [facility] Address [address] [place] [address] Phone [phone] Care Team Providers Care Brusher Tender Name Role Phone Jed Felix DO Primary Care Provider [phone] Reason for Visit * Reason Comments eRx-Medication Refill Encounter Details Date Type Department Care Team (Late st Contact Info) Description 10/08/2023 Refill [place] [address] [place] [address] Ale Multani DO [address] [place] [address] Abdominal pain, epigastric; Gastroesophageal reflux [...] encounter Miscellaneous Notes * Telephone Encounter - Amirah Cadena RPh - 10/10/2023 4:41 PM EST Contacted patient to discuss b12 supplement. Patient states she started taking b12 OTC this week. Advised a prescription was sent to her pharmacy. She should not take two of the same supplement. Advised to repeat b12 labs in 3 months. Patient is agreeable and understanding. Thanks, Amirah Cadena, PharmD Clinical Pharmacist Central[facility] Clinical Pharmacy Services(formerly telepharmacy) [phone] 10/10/2023, 4:43 PM * Telephone Encounter - Jed Felix DO [...] [place] * Telephone Encounter - Amirah Cadena [facility] - 10/10/2023 8:42 AM EST Pending Prescriptions: Disp Refills Vitamin B-12 1000 MCG Oral Tablet (Cyanoco*100 Ta*3 Sig: Take 1 Tablet by mouth in the morning. Signed Prescriptions: Disp Refills Omeprazole 20 MG Oral Capsule Delayed Rele*90 Cap*1 Sig: TAKE 1 CAPSULE BY MOUTH EVERY MORNING Authorizing Provider: JED [place] Ordering User: AMIRAH CADENA ----- * Telephone Encounter - Amirah Cadena [facility] - 10/10/2023 8:38 AM EST Recommendation VITAMIN B12 - [facility] Date Value Ref Range Status 02/20/2023 188 [...] Clinical Pharmacist Central[facility] Clinical Pharmacy Services(formerly telepharmacy) [phone] 10/10/2023, 8:40 AM documented in this encounter Plan of Treatment Upcoming Encounters Date Type Department Care Team (Late st Contact Info) Description 10/24/2023 9:00 AM EST Office Visit Family [facility] [address] [place] [address] Jed Felix DO [address] [place] [address] 04/21/2024 9:00 AM EDT Nurse Only Ancillary Department, [place] [address] [place] [address] [place], Nurse [facility] [address] [place] [address] Scheduled Orders Name Type Priority Associated Diagnoses [...] D LEVEL ONCE IN A LIFETIME-USE SMARTSET# [id number] Completed 03/17/2008 Pneumococcal Vaccine: 65+ Years Completed [...] this encounter Medical Devices Implanted Type Area Radiologist Chief Of Breast Imaging Device Identifier Shelf Expiration Date Model / Serial / Lot Lens Intraoc 20.5 - [id number] - [id number] Implanted:Qty: 1 on 12/24/2017 by Jeffrey Weber MD at [place] [facility] Left: Eye BAUSCH [employer] LOMB 05/06/2022 [id number] / [id number] / [id number] Lens Intraoc 20.5 - [id number] - [id number] Implanted:Qty: 1 on 01/07/2018 by Jeffrey Weber MD at OR [facility] Right: Eye BAUSCH [employer] LOMB 07/06/2022 [id number] / [id number] / [id number] documented as of this encounter Visit Diagnoses [...] and were consensually agreed upon. Care Teams Brusher Tender Relationship Specialty Start Date End Date Jed Felix DO [address] [place] [address] PCP - General Family Medicine 12/26/22 documented as of this encounter
[2024-02-27 06:51] LABS: Hematocrit (blood only) 33.9 % (37.0-47.0); Hemoglobin 11.3 g/dl (12.0-16.0); Mean Corpuscular Hemoglobin 28.2 pg (25.0-34.0); Mean Corpuscular Hgb Conc 33.3 g/dL (32.0-36.0); Mean Corpuscular Volume 84.5 fL (80.0-100.0); Platelet Count 257 K/uL (130-400); RDW Coefficient of Variation 14.3 % (11.5-14.5); RDW Standard Deviation 44.2 fL (36.4-46.3); Red Blood Count 4.01 M/uL (4.20-5.40); White Blood Count 9.99 K/ul (4.8-10.8)
[2024-02-27 06:58] LABS: BUN Creatinine Ratio 17.3 (10-20); Calcium 9.4 mg/dl (8.6-10.3); Chol HDL Ratio 6.8 (0-5); Creatinine Clr Calc Pharmacy 40.7 ml/min; Est GFR (African American) 77.8 ml/min; Est GFR (Non-African American) 67.2 ml/min; Magnesium 1.9 mg/dl (1.7-2.4); Potassium 4.3 mmol/L (3.5-5.1)
[2024-02-27] MEDS ORDERED: REGADENOSON 0.4 MG/5 ML SYR IV ONE (07:38)
[2024-02-27 07:48] LABS: Estimated Average Glucose 128 mg/dl; Hemoglobin A1C 6.1 % (4.5-5.6)
[2024-02-27] MEDS: ASPIRIN 81 MG ECTAB PO SCH (08:32)
[2024-02-27] MEDS: ENOXAPARIN INJ 40 MG/0.4 ML SYR SQ SCH (08:32)
[2024-02-27] MEDS: PANTOprazole 40 MG TAB PO SCH (08:32)
--- NOTE | 2024-02-27 14:22 | Myocardial Perfusion Study ---
Date of Service February 27, 2024 Myocardial Perfusion Study [facility] Myocardial Perfusion Study Report Indication: Chest pain, left bundle branch block. Patient performed stress test according to Lexiscan protocol for 4 minutes and 5 seconds. Achieving work level of 1.0 METS. Resting heart rate of 85 bpm raul to a maximal heart rate of 107 bpm. This value represents 78% of the maximal, age-predicted heart rate. The resting blood pressure 147/82 raul to a maximum blood pressure of 167/98. The stress test was stopped due to completion of protocol. Symptoms: Shortness of breath Normal heart rate and blood pressure response to Lexiscan infusion. Resting ECG: Normal sinus rhythm with left bundle branch block. Stress ECG: Nondiagnostic due to left bundle branch block. Nuclear imaging: For the stress portion of the study 30.4 mCi of technetium 99m Cardiolite was injected at 11:25 AM on 02/27/24. 30 minutes following the injection imaging of the heart was performed in multiple projections. For the rest portion of the study 9.8 mCi of technetium 99 Cardiolite was injected IV at 09 30 3 AM. 1 hour following the injection, imaging of the heart was performed in the same projections. Raw data: Evidence of nuclear tracer due to right upper extremity IV infiltration. Otherwise, no significant extracardiac uptake of isotope tracer visualized. Right ventricle: Not well-visualized. Resting imaging: Normal perfusion. Stress imaging: Normal perfusion Gated SPECT imaging: Normal left ventricular wall motion and myocardial thickening. Left ventricular cavity size is small. The calculated left ventricular ejection fraction >70%. Conclusion: 1. Normal Lexiscan myocardial nuclear perfusion imaging without evidence of inducible ischemia or myocardial scar. 2. Normal gated SPECT imaging. 3. Calculated left ventricular ejection fraction > 70%
--- NOTE | 2024-02-27 14:26 | Cardiology Progress Note ---
Date of Service February 27, 2024 Assessment & Plan (1) Atypical chest pain: (2) HTN (hypertension): Plan 83-year-old female with atypical chest discomfort and uncontrolled blood pressure on admission. Cardiac enzymes negative. ECG nondiagnostic due to chronic LBBB. Echocardiogram demonstrates preserved LV function. Lexiscan nuclear stress test negative for inducible ischemia. Blood pressure has improved. Discontinue topical nitrates. Continue lisinopril and low-dose aspirin. No further inpatient cardiac testing or intervention recommended at this time. Cardiology will sign off. Please call with additional concerns/questions. I spent a total of 30 minutes on the date of service in preparation, delivery, and documentation of the care provided to this patient, excluding any time spent in the performance of separately billed services. Admission and Anticipated Discharge Date Admission Date: February 26, 2024 Subjective 83-year-old female seen and examined at the bedside. No recurrent chest discomfort overnight. Offers no concerns/complaints. Review of Systems Review of Systems: All systems reviewed & are unremarkable except as noted in Subjective Physical Exam Constitutional: well nourished; no acute distress Respiratory: no respiratory distress, no labored breathing and no retractions Auscultation: no crackles, no rales, no rhonchi and no wheezes Cardiovascular: Rate/Rhythm: regular rate and regular rhythm Heart Sounds: normal S1 and normal S2; no murmur Vessels: no JVD Neurologic: CN's II-XI intact bilaterally and moves all extremities; no focal motor deficits Psychiatric: A+Ox3, euthymic affect Results & Data Vital Signs (Past 12 Hours) Vital Signs Temp Pulse Resp BP Pulse Ox O2 Del Method 02/27/24 08:12 36.7 C 80 18 130/77 94 Room Air 02/27/24 03:20 36.6 C 95 H 18 130/66 94 Room Air Laboratory Results Cardiac Enzymes 02/26/24 02/26/24 Range/Units 14:50 19:52 Troponin I High Sens 5.2 4.7 (0-14) pg/ml Lipids 02/27/24 Range/Units 06:12 Triglycerides 220 H (0-150) mg/dl Cholesterol 266 H (0-200) mg/dl HDL Cholesterol 39 mg/dl Cholesterol/HDL Ratio 6.8 H (0-5) CBC 02/27/24 Range/Units 06:12 WBC 9.99 (4.8-10.8) K/ul RBC 4.01 L (4.20-5.40) M/uL Hgb 11.3 L (12.0-16.0) g/dl Hct 33.9 L (37.0-47.0) % Plt Count 257 (130-400) K/uL Comprehensive Metabolic Panel 02/27/24 Range/Units 06:12 Sodium 138 (136-145) mmol/L Potassium 4.3 (3.5-5.1) mmol/L Chloride 105 (98-107) mmol/L Carbon Dioxide 27 (21-32) mmol/L BUN 14 (6-23) mg/dl Creatinine 0.81 (0.6-1.2) mg/dl Glucose 109 H (70-99(Fasting)) mg/dl Calcium 9.4 (8.6-10.3) mg/dl Intake and Output 02/26/24 02/27/24 02/27/24 22:59 06:59 14:59 Intake Total 300 / 350 Balance 300 / 350 Intake: Oral 300 / 300 Other: # Unmeasured Voids 1 1 Weight 58.5 kg 57.8 kg Weight Measurement Method [facility] Diagnostic Findings Normal Lexiscan myocardial nuclear perfusion imaging. (2) HTN (hypertension) Hypertension type: primary hypertension Qualified Code(s): I10 - Essential (primary) hypertension
--- NOTE | 2024-02-27 15:30 | Electrocardiogram Report ---
Test Reason : Blood Pressure : / mmHG Vent. Rate : 084 BPM Atrial Rate : 084 BPM P-R Int : 158 ms QRS Dur : 112 ms QT Int : 406 ms P-R-T Axes : 081 063 098 degrees QTc Int : 479 ms Sinus rhythm with Premature atrial complexes Incomplete left bundle block Nonspecific ST and T wave abnormality Prolonged QT Abnormal ECG When compared with ECG of 26-FEB-2024 06:51, Premature atrial complexes are now Present Questionable change in QRS axis ST no longer depressed in Lateral leads Confirmed by Arsh Carey ([id number]) on 02/27/2024 3:29:45 PM Referred By: REFERRED SELF Confirmed By:Arsh Carey
--- NOTE | 2024-02-27 16:14 | Discharge Summary ---
Discharge Summary Date of Service February 27, 2024 Notes For Next Care Provider Medication Changes From Visit Macrobid 100mg BID 5 days Asa 81 mg daily Discontinue home Lisinopril/HCTZ; start Lisinopril 20mg Admission HPI Per Admitting Provider Ms. Yanes is an 83 year old that presents to the ED with complaints of mid sternal chest pain that started overnight at 0200 with no SOB or radiation. She denies SOB with this. ECG 2019 with LBBB which remains today with some lateral ischemia. Patient did not take her antihypertensives this morning. She did have three episodes of diarrhea today. She did not take her BP medication today and admits to missing some days. PMH includes: HTN, HLD, and GERD. She does not take any statin due to muscle cramping. Denies tobacco, alcohol, and recreational drug use. Most recent 05/06/2023; EF 60 to 69%, mild aortic valve sclerosis, increased LV wall thickness borderline concentric, G1DDx. Slight leukocytosis 10.99, LFTs and troponin negative. Otherwise drawn labs unremarkable. Most recent lipid panel 10/30 TG 0, HDL 39, LDL 150. TSH October 2023 2.35. Pt denies ALMAZAN, dizziness, lightheadedness, abdominal pain or tenderness, dysuria, SOB, recent falls or trauma. On exam, patient does not appear toxic. Reportedly with an auscultated murmur, euvolemic. Patient will be admitted for further evaluation and management of her chest pain; will repeat ECHO, check fasting lipid panel, obtain TSH, daily ECG x2, continue Nitro paste, Labetalol IV PRN, will hold HCTZ given diarrhea, ordered stool studies, Rocephin IV for empiric treatment and Cardiology consultation. Admission Exam Per Admitting Provider On exam, patient does not appear toxic. Reportedly with an auscultated murmur, euvolemic. Principal Dx & Hospital Course #1 = Principal Diagnosis (1) Retrosternal chest pain: (2) Hypertension: (3) Dyslipidemia: (4) GERD (gastroesophageal reflux disease): (5) Diarrhea: (6) Suspected UTI: Plan Ms. Yanes is an 83 year old that presents to the ED with complaints of mid sternal chest pain that started overnight at 0200 with no SOB or radiation. She denies SOB with this. ECG 2019 with LBBB which remains today with some lateral ischemic Patient did not take her antihypertensives this morning. Denies CAD history. She did have three episodes of diarrhea today. She did not take her BP medication today and admits to missing some days. Most recent 05/06/2023; EF 60 to 69%, mild aortic valve sclerosis, increased LV wall thickness borderline concentric, G1DDx. Slight leukocytosis 10.99, LFTs and troponin negative. Otherwise drawn labs unremarkable. Most recent lipid panel 10/30 TG 0, HDL 39, LDL 150. TSH October 2023 2.35.On exam, patient does not appear toxic. Reportedly with an auscultated murmur, euvolemic. On day of discharge, patient completed Lexiscan which was negative for inducible ischemia. There was no wall motion abnormality no ECHO with normal EF. UA with GNB on culture. Chest pain resolved, diarrhea resolved, no active concerns. Retrosternal chest pain *resolved HTN urgency *resolved Chronic LBBB Acute Started overnight at 0200 without radiation BP on arrival to ED 190/83 ECG without ischemia; LBBB Troponin negative (7.0) ASA 324 mg given in ED; continue baby ASA tomorrow CXR negative for acute cardiopulmonary disease Most recent 05/06/2023; EF 60 to 69%, mild aortic valve sclerosis, increased LV wall thickness borderline concentric, G1DDx. ECHO 02/26 with EF 60-65%, no wall motion abnormality Nitro SL x2; Nitro paste applied; continue for now Dicontinue home Lisinopril/HCTZ; continue Lisinopril 20 mg daily Cards: No cardiac etiology suspected--BP control, D/C nitrates Diarrhea: *resolved Abnormal UA: Suspected UTI Acute 3 episodes today Stool culture ordered Rocephin one dose IV today for empiric treatment -Start Macrobid for 5 days HLD: Chronic Elevated cholesterol, no longer takes low dose atorvastatin; has muscle cramping Management options per PCP GERD: Chronic Takes Omeprazole;continue Discharge Exam Constitutional WD/WN, vitals as above Respiratory normal respiratory effort, lungs clear to auscultation Cardiovascular RRR, no murmur, no edema Chest (Breasts) Additional Comments: normal, no tenderness to palpation Updated Medication List Medication Instructions Recorded Confirmed Type omeprazole 20 mg capsule,delayed 20 mg PO DAILY 02/26/24 02/26/24 History release aspirin 81 mg tablet,delayed 81 mg PO DAILY #30 tabs 02/27/24 Rx release lisinopril 20 mg tablet 20 mg PO QAM #30 tabs 02/27/24 Rx nitrofurantoin 100 mg PO BID 5 days #10 caps 02/27/24 Rx monohydrate/macrocrystals 100 mg capsule (Macrobid) Hospital Stay Data Consultations 02/26/24 09:54 ED Decision to Admit Stat 02/26/24 10:09 Consult Cardiology Routine Procedures Performed Short CBC 02/27/24 Range/Units 06:12 WBC 9.99 (4.8-10.8) K/ul Hgb 11.3 L (12.0-16.0) g/dl Hct 33.9 L (37.0-47.0) % Plt Count 257 (130-400) K/uL BMP 02/27/24 06:12 Sodium 138 Potassium 4.3 Chloride 105 Carbon Dioxide 27 BUN 14 Creatinine 0.81 Glucose 109 H Calcium 9.4 Pending Results Patient Have Any Pending Studies at Discharge: No Discharge Instructions Given to Patient (Per Discharging Provider) You were admitted for chest pain which resolved with blood pressure control. You underwent work up for heart causes of chest pain, and your hearts doesn't suggest any signs of acute blockages of vessels or signs of heart failure. You were noted to have urine culture positive. You will be sent with antibiotics for 5 more days, your first dose will be tomorrow (02/27) morning around 8-9am. Please take with a meal. You will take the second dose in evening, approximately 12 hours later. Please continue to take twice a day until resolved. Please discontinue home Lisinopril/Hctz combo. You will start Lisinopril 20mg daily. The HCTZ component serves as a diuretic and can make you urinate more frequently and can cause electrolyte imbalances as we get older. It is recommended you take a baby aspirin daily, 81mg. Total Time Total Time Spent Total Time Spent (In Minutes): 45
== END 2024-02-27 16:37 | disposition home or self-care (01) | DRG 305 ==
LOC: ED 06:37 → SUATTDRO 09:54 → EDINP 09:54 → 2E 11:51